=== PATIENT | male | born 1980 | race Caucasian/White ===

== ENCOUNTER 2017-02-06 13:18 | Inpatient (IN) | payer SELFPAY ==
[2017-02-06] VITALS (19 sets, daily range): BP systolic 61–117; BP diastolic 38–68; PULSE 60–89; RESP 14–18; TEMP 97.5–98.6; O2SAT 95–100
[~2017-02-06] VITALS: Ht 162.6 cm; Wt 49.0 kg
[~2017-02-06 13:18] MED LIST: CEPH-460 PO
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
[2017-02-06] MEDS ORDERED: SODIUM CHLOR 0.9% 1000 ML INJ 1,000 ML IV ONE ×2 (15:15→16:15)
--- NOTE | 2017-02-06 15:42 | RADRPT ---
EXAM DATE/TIME: 02/06/2017 15:27 [facility] COMPARISON: CHEST SINGLE AP, January 07, 2015, 2:40. INDICATIONS : Patient complains of shortness of breath and chest pain. Patient also has a fever. MEDICAL HISTORY : None. SURGICAL HISTORY : Chest tube. Tracheotomy. ENCOUNTER: Initial ACUITY: 1 day PAIN SCORE: 4/10 LOCATION: chest FINDINGS: A single view of the chest demonstrates the lungs to be symmetrically aerated without evidence of mas s, infiltrate or effusion. The cardiomediastinal contours are unremarkable. Osseous structures are intact. CONCLUSION: No acute disease. Joaquin Bangura MD on February 06, 2017 at 15:39 Board Certified Radiologist. This report was verified electronically.
[2017-02-06 15:54] LABS: AUTOMATED NEUTROPHIL # 16.5 TH/MM3 (1.8-7.7); BASOPHIL % 0.2 % (0.0-2.0); EOSINOPHIL % 0.1 % (0.0-4.0); HEMATOCRIT 30.1 % (39.0-51.0); HEMO FLAGS DIFF FINAL; LYMPH % 4.3 % (9.0-44.0); LYMPHOCYTE # 0.8 TH/MM3 (1.0-4.8); MEAN CELL VOLUME 79.7 FL (80.0-100.0); MEAN CORPUSCULAR HEMOGLOBIN 25.7 PG (27.0-34.0); MEAN CORPUSCULAR HGB CONC 32.2 % (32.0-36.0); MONO % 10.4 % (0.0-8.0); PLATELET COUNT 226 TH/MM3 (150-450); RED BLOOD COUNT 3.78 MIL/MM3 (4.50-5.90); WHITE BLOOD COUNT 19.5 TH/MM3 (4.0-11.0)
[2017-02-06] MEDS ORDERED: PIPERACIL-TAZO 4.5 GM PREMIX 100 ML IV ONE (16:00)
[2017-02-06] MEDS ORDERED: VANCOMYCIN INJ 1,000 MG in SODIUM CHLOR 0.9% 250 ML INJ 250 ML IV ONE (16:00)
[2017-02-06 16:02] LABS: APTT (PATIENT) 32.6 SEC (24.3-30.1); INTERNATIONAL NORMALIZED RATIO 1.2 RATIO; PROTHROMBIN TIME - PATIENT 13.4 SEC (9.8-11.6)
[2017-02-06] MEDS ORDERED: ASPI325T PO (16:07)
[2017-02-06] MEDS ORDERED: IBUP-1129 (16:07)
[2017-02-06 16:19] LABS: ALT (GPT) 46 U/L (12-78); ANION GAP 12 MEQ/L (5-15); AST (GOT) 90 U/L (15-37); BICARBONATE 25.5 MEQ/L (21.0-32.0); BLOOD UREA NITROGEN 67 MG/DL (7-18); CHLORIDE 94 MEQ/L (98-107); GLOMERULAR FILTRATION RATE 26 ML/MIN (>89); MAGNESIUM 2.1 MG/DL (1.5-2.5); POTASSIUM 3.3 MEQ/L (3.5-5.1); SODIUM (NA) 131 MEQ/L (136-145)
[2017-02-06 16:22] LABS: ALKALINE PHOSPHATASE 649 U/L (45-117); TOTAL BILIRUBIN ADULT 0.5 MG/DL (0.2-1.0)
[2017-02-06 16:23] LABS: CREATINE KINASE 32 U/L (39-308)
[2017-02-06 17:32] LABS: WBC, SYNOVIAL FLUID 26800 /MM3 (0-200)
[2017-02-06] MEDS ORDERED: TERBUTALINE INJ 1 MG/ML AMP SQ PRN (17:45)
[2017-02-06] MEDS ORDERED: NOREPINEPHRINE-DEXTROSE DRIP 250 ML IV SCH (17:45)
[2017-02-06] MEDS ORDERED: NOREPINEPHRINE 4 MG/4 ML AMP ONE (18:06)
[2017-02-06 18:30] LABS: BACTERIA, URINE RARE /hpf; BLOOD, URINE MOD (NEG); GLUCOSE,URINE NEG (NEG); KETONE, URINE NEG (NEG); MUCUS URINE FEW /lpf (OCC); NITRITE,URINE NEG (NEG); PH, URINE 5.5 (5.0-8.5); SQUAMOUS EPITHELIAL CELL URINE 1 /hpf (0-5); URINE COLOR YELLOW (YELLW/STRAW)
[2017-02-06 18:33] LABS: COMMENT (UR) CATH-CULTURE IND; CULTURE IF INDICATED CATH CULTURE IND
[2017-02-06] MEDS ORDERED: CHLORHEXIDINE GLUCONATE 2 % 1 PACK (2 CLOTHS) TOP PRN (19:00)
[2017-02-06] MEDS ORDERED: ONDANSETRON HCL 4 MG/2 ML VIAL IV PRN (19:00)
[2017-02-06] MEDS ORDERED: Vancomycin Consult Pharmacy 1 EA OTHER SCH (19:00)
[2017-02-06] MEDS ORDERED: RESP: ALBUTEROL 2.5 MG/IPRATROPIUM 0.5 MG NEB (PRN) INH (19:00)
[2017-02-06] MEDS ORDERED: SENNOSIDES 8.6 MG TAB PO PRN (19:00)
[2017-02-06] MEDS ORDERED: MISCELLANEOUS NURSING INFORMATION XX SCH (19:00)
[2017-02-06] MEDS ORDERED: BISACODYL 10 MG SUPP RECTAL PRN (19:00)
[2017-02-06] MEDS ORDERED: LACTULOSE SYRUP 20 GM/30 ML CUP PO PRN (19:00)
[2017-02-06] MEDS ORDERED: MAGNESIUM HYDROXIDE SUSP 30 ML CUP PO PRN (19:00)
--- NOTE | 2017-02-06 19:06 | RADRPT ---
EXAM DATE/TIME: 02/06/2017 18:36 [facility] COMPARISON: No previous studies available for comparison. INDICATIONS : Abscess. MEDICAL HISTORY : Hepatitis C. IVDA SURGICAL HISTORY : Mandible ENCOUNTER: Initial ACUITY: 1 day PAIN SCORE: 5/10 LOCATION: Paraspinal TECHNIQUE: Multiplanar multisequence MRI of the thoracic spine was performed. FINDINGS: VERTEBRA: Normal vertebral body height. Homogeneous marrow signal. ALIGNMENT: Normal. CORD: Normal position and configuration. T1-T2: Normal. T2-T3: The thecal sac has a normal diameter. No evidence of disc bulge or protrusion. T3-T4: The thecal sac has a normal diameter. No evidence of disc bulge or protrusion. T4-T5: The thecal sac has a normal diameter. No evidence of disc bulge or protrusion. T5-T6: The thecal sac has a normal diameter. No evidence of disc bulge or protrusion. T6-T7: The thecal sac has a normal diameter. No evidence of disc bulge or protrusion. T7-T8: The thecal sac has a normal diameter. No evidence of disc bulge or protrusion. T8-T9: The thecal sac has a normal diameter. No evidence of disc bulge or protrusion. T9-T10: The thecal sac has a normal diameter. No evidence of disc bulge or protrusion. T10-T11: The thecal sac has a normal diameter. No evidence of disc bulge or protrusion. T11-T12: The thecal sac has a normal diameter. No evidence of disc bulge or protrusion. T12-L1: The thecal sac has a normal diameter. No evidence of disc bulge or protrusion. CONCLUSION: Negative thoracic spine MRI without contrast. Timoteo Stapleton MD on February 06, 2017 at 19:02 Board Certified Radiologist. This report was verified electronically.
--- NOTE | 2017-02-06 19:16 | RADRPT ---
EXAM DATE/TIME: 02/06/2017 18:36 [facility] COMPARISON: No previous studies available for comparison. INDICATIONS : Abscess. MEDICAL HISTORY : Hepatitis C. IVDA SURGICAL HISTORY : Mandible ENCOUNTER: Initial ACUITY: 1 day PAIN SCORE: 4/10 LOCATION: Paraspinal TECHNIQUE: Multiplanar, multisequence MRI examination of the cervical spine was performed. FINDINGS: VERTEBRAE: Normal vertebral body height. Homogeneous marrow signal. ALIGNMENT: No evidence of subluxation. CORD: Normal configuration and signal. POST FOSSA: The cerebellar tonsils are normal in position. C2-C3: The thecal sac has a normal configuration. There is no evidence of disc herniation or spinal canal s tenosis. The neural foramina are patent bilaterally. C3-C4: The thecal sac has a normal configuration. There is no evidence of disc herniation or spinal canal s tenosis. The neural foramina are patent bilaterally. C4-C5: Tiny broad posterior disc protrusion without significant foraminal or spinal stenosis. C5-C6: Tiny, broad posterior disc protrusion without significant foraminal or spinal stenosis. C6-C7: The thecal sac has a normal configuration. There is no evidence of disc herniation or spinal canal s tenosis. The neural foramina are patent bilaterally. C7-T1: The thecal sac has a normal configuration. There is no evidence of disc herniation or spinal canal s tenosis. The neural foramina are patent bilaterally. CONCLUSION: Minimal degenerative changes. No stenosis or abscess of the cervical spine. Timoteo Stapleton MD on February 06, 2017 at 19:14 Board Certified Radiologist. This report was verified electronically.
--- NOTE | 2017-02-06 19:41 | RADRPT ---
EXAM DATE/TIME: 02/06/2017 18:36 [facility] COMPARISON: No previous studies available for comparison. INDICATIONS : Abscess. MEDICAL HISTORY : Hepatitis C. IVDA SURGICAL HISTORY : Mandible ENCOUNTER: Initial ACUITY: 1 day PAIN SCORE: 5/10 LOCATION: Paraspinal TECHNIQUE: Multiplanar multisequence MRI of the lumbar spine was performed without contrast. FINDINGS: The most caudal appearing lumbar vertebra is numbered as L5. VERTEBRAE: Homogeneous signal. Normal alignment. CONUS: Normal level and configuration. T12-L1: The thecal sac has a normal diameter. No evidence of disc bulge or protrusion. The neural foramina are patent bilaterally. L1-L2: The disc is desiccated and has mild loss of height. There is a high intensity zone anteriorly and wit h some adjacent marrow edema of the anterior, inferior corner of the L1 vertebral body, appearing george ctive. There is diffuse bulging of the disc annulus. No significant foraminal or spinal stenosis demo nstrated. L2-L3: The thecal sac has a normal diameter. No evidence of disc bulge or protrusion. The neural foramina are patent bilaterally. L3-L4: The thecal sac has a normal diameter. No evidence of disc bulge or protrusion. The neural foramina are patent bilaterally. L4-L5: The disc is slightly desiccated. Minimal loss of height. There is diffuse bulging of the disc annulus and mild bilateral facet osteoarthritis. No significant foraminal or spinal stenosis. L5-S1: Disc height and hydration are within normal limits. Mild bilateral facet osteoarthritis. No foraminal or spinal stenosis. CONCLUSION: 1. Lumbar spine degenerative changes as above, most conspicuous at L1/L2. 2. Large anterior annular fissure at the L1/L2 disc and reactive appearing marrow edema of the adjace nt anterior/inferior corner of the L1 vertebral body. 3. No abscess. No significant foraminal or spinal stenosis. No evidence of osteomyelitis. Timoteo Stapleton MD on February 06, 2017 at 19:36 Board Certified Radiologist. This report was verified electronically.
[2017-02-06] MEDS: SODIUM CHLOR 0.9% 1000 ML INJ 1,000 ML IV SCH (20:00)
[2017-02-06] MEDS: FAMOTIDINE 20 MG/2 ML VIAL IV PUSH SCH (20:01)
[2017-02-06] MEDS: DOCUSATE SODIUM 50 MG/SENNA 8.6 MG TAB PO SCH (20:01)
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
[2017-02-06] MEDS: PIPERACIL-TAZO 2.25 GM PREMIX 50 ML IV SCH (20:26)
[2017-02-06] MEDS ORDERED: LORazepam 2 MG/ML VIAL IV PUSH PRN (22:15)
[2017-02-07] VITALS (16 sets, daily range): BP systolic 88–122; BP diastolic 49–82; PULSE 69–111; RESP 16–18; TEMP 99.6–101.3; O2SAT 92–100
[2017-02-07] MEDS: SODIUM CHLOR 0.9% 1000 ML INJ 1,000 ML IV SCH ×4 (02:49→20:04)
[2017-02-07] MEDS: CHLORHEXIDINE GLUCONATE 2 % 1 PACK (2 CLOTHS) TOP SCH ×2 (03:54→20:04)
[2017-02-07 04:42] LABS: MEAN CELL VOLUME 79.7 FL (80.0-100.0); MEAN CORPUSCULAR HEMOGLOBIN 25.8 PG (27.0-34.0); MEAN CORPUSCULAR HGB CONC 32.3 % (32.0-36.0); PLATELET COUNT 174 TH/MM3 (150-450); RED BLOOD COUNT 2.89 MIL/MM3 (4.50-5.90); RED CELL DISTRIBUTION WIDTH 14.1 % (11.6-17.2); WHITE BLOOD COUNT 14.1 TH/MM3 (4.0-11.0)
[2017-02-07 04:45] LABS: HEMO FLAGS AUTO DIFF
[2017-02-07] MEDS: PIPERACIL-TAZO 2.25 GM PREMIX 50 ML IV SCH ×3 (04:49→20:05)
[2017-02-07 05:04] LABS: BICARBONATE 23.7 MEQ/L (21.0-32.0); CALCIUM-PROTEIN CORRECTED 7.9 MG/DL (8.5-10.1); MAGNESIUM 1.6 MG/DL (1.5-2.5); POTASSIUM 3.2 MEQ/L (3.5-5.1); TOTAL BILIRUBIN ADULT 0.3 MG/DL (0.2-1.0)
[2017-02-07] MEDS ORDERED: SODIUM CHLOR 0.9% 1000 ML INJ 1,000 ML IV ONE (05:45)
[2017-02-07] MEDS: POTASSIUM CHLOR 20 MEQ PREMIX 100 ML IV SCH ×2 (06:19→09:41)
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
[2017-02-07 06:46] LABS: BANDS 20 % (0-6); NEUTROPHIL # MANUAL DIFF 11.8 TH/MM3 (1.8-7.7); POLYS (SEG NEUTROPHILS) 64 % (16-70); WBC DIFF SAMPLE 100
[2017-02-07 06:47] LABS: DOHLE BODIES PRESENT (NONE SEEN); PLATELET ESTIMATE SMEAR NORMAL (NORMAL); PLATELET MORPHOLOGY NORMAL (NORMAL); SCAN/DIFF FINAL DIFF MANUAL
[2017-02-07] MEDS: DOCUSATE SODIUM 50 MG/SENNA 8.6 MG TAB PO SCH ×2 (09:00→20:05)
[2017-02-07] MEDS: FAMOTIDINE 20 MG/2 ML VIAL IV PUSH SCH ×2 (09:49→20:04)
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
--- NOTE | 2017-02-07 15:50 | EKG ---
Date Performed: 02/06/2017 Time Performed: 13:39:29 PTAGE: 36 years EKG: Sinus rhythm POSSIBLE RIGHT VENTRICULAR CONDUCTION DELAY NONSPECIFIC T-WAVE ABNORMALITY BORDERLINE ECG NO PREVIOUS TRACING DOCTOR: Vernon James Interpretating Date/Time 02/07/2017 15:48:46
--- NOTE | 2017-02-07 17:53 | RADRPT ---
EXAM DATE/TIME: 02/07/2017 17:21 [facility] COMPARISON: SHOULDER LEFT (1 VW), February 07, 2017, 5:56. INDICATIONS : Septic joint MEDICAL HISTORY : Hepatitis C. IVDA SURGICAL HISTORY : Mandible ENCOUNTER: Initial ACUITY: 1 day PAIN SCORE: 7/10 LOCATION: Left shoulder TECHNIQUE: Multiplanar, multisequence MRI examination was performed without contrast. FINDINGS: There is nondescript edema involving the left humeral head superior laterally could be due to ma rrow contusion if there is a history of trauma. The rotator cuff is grossly intact and the glenohumer al joint is grossly intact with technique. The examination is slightly limited due to motion artifact . There is also slight edema involving the distal clavicle near the AC joint with some edema in the s urrounding soft tissues and sub acromial location. CONCLUSION: Nondescript edema involving distal clavicle and proximal humerus could be due to marrow contusion, ho wever the appearance is nonspecific in regards to osteomyelitis. There is no abscess. Jaycee Bowser MD on February 07, 2017 at 17:49 Board Certified Radiologist. This report was verified electronically.
[2017-02-07] MEDS: VANCOMYCIN INJ 750 MG in SODIUM CHLOR 0.9% 250 ML INJ 250 ML IV SCH (18:00)
[2017-02-07] MEDS: ACETAMINOPHEN 325 MG TAB PO PRN (20:55)
--- NOTE | 2017-02-07 23:32 | HHI.CCPN ---
Subjective Remarks/Hospital Course 36 y/o cachectic homeless man with long-standing history of drug-seeking in [facility] presents hypotensive in 60s, largely obtunded and severely dehydrated with NNEKA. After several liters of fluid he is conversant and complains of back pain. CXR, U/A benign. Because of back pain, fever and leukocytosis he underwent MRI of back ion ED which did not show any abscess or acute injury. Prealbumin 4 and albumin 2.3, indicative of severe protein calorie malnutrition. He acknowledges chronic heroin use. 02/07: All blood cultures and left knee synovial fluid positive for MRSA in a patient with active IV drug use. NNEKA improving with aggressive hydration. Endocarditis is a primary concern - workup in progress. Severely debilitated. Objective Vital Signs Date Time Temp Pulse Resp B/P Pulse Ox O2 Delivery O2 Flow Rate FiO2 02/07/17 20:00 101.3 76 16 119/69 92 02/07/17 12:55 Room Air 02/07/17 02:40 2 Result Diagram: 02/07/1742902/[id number]/17429 Objective Remarks Gen: Ill-appearing, emaciated man. Head: Atraumatic. Neck: Supple, airway patent, old trach scar mid neck. Lungs: Clear, no wheezes or crackles. Comfortable respiratory pattern, mild tachypnea. Heart: NL S1S2, No JVD. RRR. Abdomen: Scaphoid, soft, no guarding. BS active. Extremities: Warm, well perfused. Neuro: STEFANIE. Moves 4 limbs to command. Conversant. Anxious, fidgety. A/P Assessment and Plan Assessment: 1. Severe sepsis. 1a. Bacteremia - MRSA 02/06 2. Hypotension. 3. Active heroin addiction. 4. NNEKA. 5. Hep C 6. Severe Protein Calorie Malnutrition 7. Infected left knee joint. Plan: 1. Continued hydration. 2. HIV and hepatitis panel. 3. Lactic acid a.m. 4. Broad abx coverage pending culture results. 5. Trend CBC, RFTs. 6. H2 crispin 7. Start chemical DVT PX pending decision for LP. 8. Left shoulder xray NL, MRI shoulder edema, no osteomyelitis. 9. ID consult. Overall impression: Patient arrived critically ill and largely obtunded. He was severely dehydrated and emaciated. His [employer] exam and present level of consciousness mitigate against meningitis. Source of sepsis unknown - endocarditis highly likely. I appreciate ID input. Leandro Estrada MD Feb 07, 2017 23:32
[2017-02-08] VITALS (8 sets, daily range): BP systolic 103–142; BP diastolic 51–80; PULSE 56–104; RESP 16–19; TEMP 96.6–101.1; O2SAT 92–97
[2017-02-08 03:03] LABS: AUTOMATED NEUTROPHIL # 9.6 TH/MM3 (1.8-7.7); BASOPHIL % 0.3 % (0.0-2.0); EOSINOPHIL # 0.1 TH/MM3 (0-0.4); EOSINOPHIL % 0.6 % (0.0-4.0); HEMATOCRIT 22.9 % (39.0-51.0); LYMPHOCYTE # 1.5 TH/MM3 (1.0-4.8); MEAN CELL VOLUME 79.8 FL (80.0-100.0); MEAN CORPUSCULAR HEMOGLOBIN 26.6 PG (27.0-34.0); MEAN CORPUSCULAR HGB CONC 33.3 % (32.0-36.0); NEUT % 76.1 % (16.0-70.0); PLATELET COUNT 166 TH/MM3 (150-450); RED BLOOD COUNT 2.87 MIL/MM3 (4.50-5.90); RED CELL DISTRIBUTION WIDTH 14.2 % (11.6-17.2); WHITE BLOOD COUNT 12.7 TH/MM3 (4.0-11.0)
[2017-02-08] MEDS: PIPERACIL-TAZO 2.25 GM PREMIX 50 ML IV SCH ×3 (03:15→21:18)
[2017-02-08 03:26] LABS: HEMO FLAGS AUTO DIFF
[2017-02-08 03:42] LABS: BICARBONATE 25.3 MEQ/L (21.0-32.0); POTASSIUM 3.8 MEQ/L (3.5-5.1)
[2017-02-08 04:14] LABS: SCAN/DIFF AUTO DIFF CONFIRMED
[2017-02-08] MEDS: ACETAMINOPHEN 325 MG TAB PO PRN (06:23)
[2017-02-08] MEDS: SODIUM CHLOR 0.9% 1000 ML INJ 1,000 ML IV SCH ×2 (06:24→21:28)
[2017-02-08] MEDS: THIAMINE HCL 100 MG TAB PO SCH (07:43)
[2017-02-08] MEDS: FOLIC ACID 1 MG TAB PO SCH (07:44)
[2017-02-08] MEDS: DOCUSATE SODIUM 50 MG/SENNA 8.6 MG TAB PO SCH ×3 (07:44→21:18)
[2017-02-08] MEDS: FAMOTIDINE 20 MG TAB PO SCH ×2 (07:44→21:00)
[2017-02-08] MEDS: HEPARIN SODIUM - SQ 10,000 UNITS/ML VIAL SQ SCH ×2 (07:44→21:19)
[2017-02-08] MEDS ORDERED: PROPOFOL 200 MG/20 ML AMP IV ONE (12:00)
[2017-02-08] MEDS ORDERED: ONDANSETRON HCL 4 MG/2 ML VIAL IV PUSH ONE (12:00)
[2017-02-08] MEDS ORDERED: LACTATED RINGER'S 1000 ML INJ 1,000 ML IV ONE (12:00)
[2017-02-08] MEDS ORDERED: ePHEDrine/NS 25 MG/5 ML SYR IV ONE (12:00)
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
[2017-02-08] MEDS ORDERED: fentaNYL CITRATE 250 MCG/5 ML AMP ONE (13:34)
[2017-02-08] MEDS ORDERED: GENTAMICIN SULFATE 80 MG/2 ML VIAL ONE (13:48)
[2017-02-08] MEDS ORDERED: VANCOMYCIN HCL 1000 MG VIAL ONE (14:03)
[2017-02-08] MEDS ORDERED: DO NOT ADM ANY ANTICOAGULANT DRUGS PRN (14:55)
--- NOTE | 2017-02-08 14:57 | HHI.PR ---
Subjective Remarks Pt states he has a lot of pain. Trying to move his knee from time to time but does have trouble moving his left shoulder as well. denies any CP/SOB/N/V Objective Vitals Vital Signs Date Time Temp Pulse Resp B/P (MAP) Pulse Ox O2 Delivery O2 Flow Rate FiO2 02/08/17 12:00 97.0 69 17 117/67 (84) 95 02/08/17 08:00 101.1 90 18 119/59 (79) 93 02/08/17 07:45 90 02/08/17 04:00 100.8 104 16 142/80 (100) 93 02/08/17 00:00 78 02/08/17 00:00 97.6 103 16 103/51 (68) 96 02/07/17 20:00 101.3 76 16 119/69 (86) 92 02/07/17 16:00 100.8 69 17 111/62 (78) 97 02/07/17 15:00 78 I/O 02/07/17 02/07/17 02/07/17 02/08/17 02/08/17 02/08/17 07:00 15:00 23:00 07:00 15:00 23:00 Intake Total 4400 ml 1160 ml 800 ml Output Total 1200 ml 550 ml 450 ml 350 ml Balance 3200 ml 610 ml -450 ml 450 ml Intake IV Total 4400 ml 1160 ml 800 ml Output Urine Total 1200 ml 550 ml 450 ml 350 ml Result Diagram: 02/08/17 0245 02/08/17 0245 Imaging Last Impressions Shoulder X-Ray 02/07/17 0000 Signed Impressions: Service Date/Time: Tuesday, February 07, 2017 05:56 - CONCLUSION: Unremarkable single view examination of the left shoulder. Nabil Rai MD Shoulder MRI 02/07/17 0000 Signed Impressions: Service Date/Time: Tuesday, February 07, 2017 17:21 - CONCLUSION: Nondescript edema involving distal clavicle and proximal humerus could be due to marrow contusion, however the appearance is nonspecific in regards to osteomyelitis. There is no abscess. Jaycee Bowser MD Chest X-Ray 02/06/17 1503 Signed Impressions: Service Date/Time: Monday, February 06, 2017 15:27 - CONCLUSION: No acute disease. Joaquin Bangura MD Thoracic Spine MRI 02/06/17 0000 Signed Impressions: Service Date/Time: Monday, February 06, 2017 18:36 - CONCLUSION: Negative thoracic spine MRI without contrast. Timoteo Stapleton MD Lumbar Spine MRI 02/06/17 0000 Signed Impressions: Service Date/Time: Monday, February 06, 2017 18:36 - CONCLUSION: 1. Lumbar spine degenerative changes as above, most conspicuous at L1/L2. 2. Large anterior annular fissure at the L1/L2 disc and reactive appearing marrow edema of the adjacent anterior/inferior corner of the L1 vertebral body. 3. No abscess. No significant foraminal or spinal stenosis. No evidence of osteomyelitis. Timoteo Stapleton MD Cervical Spine MRI 02/06/17 0000 Signed Impressions: Service Date/Time: Monday, February 06, 2017 18:36 - CONCLUSION: Minimal degenerative changes. No stenosis or abscess of the cervical spine. Timoteo Stapleton MD Objective Remarks Gen: emaciated man. Head: Atraumatic. Neck: airway patent Lungs: Clear, no wheezes or crackles. Heart: RRR w no murmurs Abdomen: soft, no guarding. BS active. Extremities: Warm, well perfused. Neuro: anxious. able to move the right side but limited movement on the left knee and left shoulder A/P Problem List: (1) Septic shock ICD Code: A41.9 - Sepsis, unspecified organism; R65.21 - Severe sepsis with septic shock Status: Acute (2) NNEKA (acute kidney injury) ICD Code: N17.9 - Acute kidney failure, unspecified Status: Acute (3) Encephalopathy acute ICD Code: G93.40 - Encephalopathy, unspecified Status: Acute Assessment and Plan 1. Severe sepsis. Pt continue to have temps of Tm 101.3. ID following. Tachycardia is improving. Leukocytosis down to 12.7 today. Continue IV zosyn and vanc. Blood cx growing MRSA. Concerns for endocarditis. ECHO has been ordered. no report available. lactic acid normal. source is septic knee/ ? left shoulder. ortho consult in place. MRI shoulder and thoracic/lumbar spine reviewed. 2. Hypotension. resolved. continue IVFs for now as pt is NPO. NS@100ml/hr 3. Active heroin addiction. Pt has been counseled to quit. 4. NNEKA. Cr. 1.69 on admission now down to 1.00 5. Hx of hep C. stable. 6. Severe Protein Calorie Malnutrition. will get RD consult for recommendations 7. Infected left knee joint. see above. synovial fluid culture growing MRSA Discharge Planning continue to f/u on cultures. continue IV abx. awaiting ortho consult. appreciate input from Lupis Gabriel MD Feb 08, 2017 14:57
[2017-02-08] MEDS ORDERED: ceFAZolin INJ 1,000 MG VIAL ONE (15:19)
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
[2017-02-08] MEDS ORDERED: LACTULOSE SYRUP 20 GM/30 ML CUP PO PRN (15:30)
[2017-02-08] MEDS ORDERED: SENNOSIDES 8.6 MG TAB PO PRN (15:30)
[2017-02-08] MEDS ORDERED: MAGNESIUM HYDROXIDE SUSP 30 ML CUP PO PRN (15:30)
[2017-02-08] MEDS ORDERED: BISACODYL 10 MG SUPP RECTAL PRN (15:30)
[2017-02-08] MEDS ORDERED: oxyCODONE/ACETAMINOPHEN 5 MG/325 MG TAB PO PRN (15:30)
[2017-02-08] MEDS ORDERED: MORPHINE SULFATE 8 MG/ML INJ IV PUSH PRN (15:30)
[2017-02-08] MEDS ORDERED: ZOLPIDEM TARTRATE 5 MG TAB PO PRN (15:30)
[2017-02-08] MEDS ORDERED: Post-op Orders (for Pharmacy) MISC XX ONE (15:30)
[2017-02-08] MEDS ORDERED: SODIUM CHLORIDE 0.9% FLUSH 10 ML FLUSH IV FLUSH PRN (15:30)
--- NOTE | 2017-02-08 15:33 | PD.OP ---
cc: Arcadio Monge Jr., MD Operative Report Date of Surgery: Feb 08, 2017 Preoperative Diagnosis: left knee septic arthritis Postoperative Diagnosis: same Procedure: left knee irrigation and drainage Anesthesia: Surgeon: Arcadio Monge Research Program Intern(s): staff Resident Surgeon: none Operation and Findings: The patient was placed supine on OR table. Left lower extremity was prepped and dapped in sterile manner. Arthroscopy trochar was introduced in the superior lateral portal and and arthrotomy was performed inferior medially. cultures were taken. small amount of cloudy synovial fluid was expressed. The knee joint was drained and thoroughly irrigated with copious saline. A hemovac was placed deep. The wounds were closed with 2-0 nylon. Sterile dressing applied. Patient extubated and transfered to PACU in stable condition. -No complications rAcadio Monge Jr., MD Feb 08, 2017 15:33
--- NOTE | 2017-02-08 15:44 | ECHRPT ---
Indication: ENDOCARDITIS CONCLUSIONS The left ventricular systolic function is low normal with an estimated ejection fraction in the rang e of 50- 55%. Large, mobile vegetation on the anterior leaflet of the tricuspid valve (1.53cm X 1.19 cm) Mitral, aortic, and pulmonic valves well visualized and no vegetation seen. Normal left ventricular size. Wall thickness is normal. No regional wall motion abnormalities are present. The right ventricle size is upper limits of normal. There is moderate tricuspid valve regurgitation. The estimated pulmonary arterial pressure is 50 mmHg. BP: / HR: Rhythm: Sinus MEASUREMENTS (Male / Female) Normal Values Technical Quality:Good M-MODE LV Diastolic Diameter MM 5.3 cm 4.2 - 5.9 / 3.9 - 5.3 cm IVS Diastolic Thickness MM 0.8 cm 0.6 - 1.0 / 0.6 - 0.9 cm LVPW Diastolic Thickness MM 0.9 cm 0.6 - 1.0 / 0.6 - 0.9 cm LV Relative Wall Thickness MM 0.3 0.24 - 0.42 / 0.22 - 0.42 LV Mass Index MM 122.4 g/m 49 - 115 / 43 - 95 g/m FINDINGS LEFT VENTRICLE The left ventricular systolic function is low normal with an estimated ejection fraction in the rang e of 50- 55%. Normal left ventricular size. Wall thickness is normal. No regional wall motion abnormalities are present. RIGHT VENTRICLE The right ventriclar size is upper limits of normal. LEFT ATRIUM The left atrial size is normal. RIGHT ATRIUM The right atrial size is normal. ATRIAL SEPTUM Normal atrial septal thickness without atrial level shunting by limited color doppler interrogation. AORTA The aortic root and proximal ascending aorta are normal in size on limited imaging. MITRAL VALVE Structurally normal mitral valve. No mitral valve stenosis or regurgitation. AORTIC VALVE Trileaflet aortic valve. No aortic valve stenosis or regurgitation. TRICUSPID VALVE Findings consistent with vegetation on the anterior leaflet of the tricuspid valve. There is moderate tricuspid valve regurgitation. The estimated pulmonary arterial pressure is 50 mmHg. PULMONARY VALVE Trivial pulmonary valve regurgitation. VESSELS The inferior vena cava is normal in size. PERICARDIUM No pericardial effusion. Ervin Patel MD (Electronically Signed) Final Date:08 February 2017 15:43
[2017-02-08] MEDS: KETOROLAC TROMETHAMINE 30 MG/ML (IVP) VIAL IVP SCH ×2 (17:02→21:19)
[2017-02-08] MEDS: VANCOMYCIN INJ 750 MG in SODIUM CHLOR 0.9% 250 ML INJ 250 ML IV SCH (17:03)
[2017-02-08] MEDS: ENOXAPARIN SODIUM 30 MG/0.3 ML SYRINGE SQ SCH (17:03)
[2017-02-08] MEDS: ACETAMINOPHEN/HYDROcodone 325 MG/5 MG TAB PO PRN ×2 (17:04→21:19)
[2017-02-08] MEDS: SODIUM CHLORIDE 0.9% FLUSH 10 ML FLUSH IV FLUSH SCH (21:00)
[2017-02-09] VITALS (7 sets, daily range): BP systolic 120–143; BP diastolic 61–77; PULSE 51–62; RESP 16–20; TEMP 96.1–98.7; O2SAT 95–100
[2017-02-09] MEDS: ENOXAPARIN SODIUM 30 MG/0.3 ML SYRINGE SQ SCH ×2 (03:21→14:30)
[2017-02-09] MEDS: CHLORHEXIDINE GLUCONATE 2 % 1 PACK (2 CLOTHS) TOP SCH (03:21)
[2017-02-09] MEDS: SODIUM CHLOR 0.9% 1000 ML INJ 1,000 ML IV SCH ×2 (03:22→12:51)
[2017-02-09] MEDS: KETOROLAC TROMETHAMINE 30 MG/ML (IVP) VIAL IVP SCH ×4 (03:22→22:05)
[2017-02-09] MEDS: PIPERACIL-TAZO 2.25 GM PREMIX 50 ML IV SCH ×2 (04:08→11:43)
[2017-02-09] MEDS: ACETAMINOPHEN/HYDROcodone 325 MG/5 MG TAB PO PRN ×4 (05:31→18:39)
[2017-02-09 05:46] LABS: BASOPHIL % 0.2 % (0.0-2.0); HEMO FLAGS DIFF FINAL; LYMPH % 6.5 % (9.0-44.0); MEAN CELL VOLUME 79.8 FL (80.0-100.0); MEAN CORPUSCULAR HEMOGLOBIN 26.6 PG (27.0-34.0); MEAN CORPUSCULAR HGB CONC 33.3 % (32.0-36.0); NEUT % 90.3 % (16.0-70.0); PLATELET COUNT 155 TH/MM3 (150-450); RED BLOOD COUNT 2.88 MIL/MM3 (4.50-5.90); RED CELL DISTRIBUTION WIDTH 14.6 % (11.6-17.2); WHITE BLOOD COUNT 15.5 TH/MM3 (4.0-11.0)
[2017-02-09 06:12] LABS: BICARBONATE 22.2 MEQ/L (21.0-32.0); POTASSIUM 3.9 MEQ/L (3.5-5.1)
[2017-02-09] MEDS: DOCUSATE SODIUM 50 MG/SENNA 8.6 MG TAB PO SCH ×3 (09:00→22:05)
[2017-02-09] MEDS: SODIUM CHLORIDE 0.9% FLUSH 10 ML FLUSH IV FLUSH SCH ×2 (09:00→21:00)
[2017-02-09] MEDS: FAMOTIDINE 20 MG TAB PO SCH ×2 (09:18→22:14)
[2017-02-09] MEDS: HEPARIN SODIUM - SQ 10,000 UNITS/ML VIAL SQ SCH (09:18)
[2017-02-09] MEDS: FOLIC ACID 1 MG TAB PO SCH (09:18)
[2017-02-09] MEDS: THIAMINE HCL 100 MG TAB PO SCH (09:21)
[2017-02-09] MEDS ORDERED: PERC5TAB12 PO (09:51)
--- NOTE | 2017-02-09 09:54 | PD.ORT.PN ---
Subjective Subjective Remarks No issues. Left knee pain improved. Objective Vitals Vital Signs Date Time Temp Pulse Resp B/P (MAP) Pulse Ox O2 Delivery O2 Flow Rate FiO2 02/09/17 08:00 97.4 55 20 122/77 (92) 97 02/09/17 05:54 97.8 52 16 133/63 (86) 97 02/09/17 00:00 97.6 62 16 123/72 (89) 95 02/08/17 20:02 56 02/08/17 20:00 96.6 57 16 122/77 (92) 97 02/08/17 16:00 96.8 68 19 126/78 (94) 92 02/08/17 15:31 78 18 125/68 (87) 97 Room Air 02/08/17 15:29 76 18 97 Room Air 02/08/17 15:15 66 14 123/73 (90) 97 Nasal Cannula 2 02/08/17 15:00 69 14 114/65 (81) 94 Nasal Cannula 2 02/08/17 14:53 97.6 71 14 113/60 (77) 98 Nasal Cannula 2 02/08/17 12:00 97.0 69 17 117/67 (84) 95 02/08/17 10:50 21 I/O 02/08/17 02/08/17 02/08/17 02/09/17 02/09/17 02/09/17 07:00 15:00 23:00 07:00 15:00 23:00 Intake Total 1100 ml 1582 ml 1050 ml 120 ml Output Total 450 ml 350 ml 610 ml 0 ml Balance -450 ml 750 ml 972 ml 1050 ml 120 ml Intake Oral 720 ml 120 ml IV Total 800 ml 862 ml 1050 ml Other 300 ml Output Urine Total 450 ml 350 ml 600 ml Drainage Total 10 ml 0 ml # Voids 0 # Bowel Movements 0 Result Diagram: 02/09/1730 02/09/17 0530 Objective Remarks Alert awake and oriented -3. No acute distress. Pulmonary: Normal respiratory effort. Left lower extremity: Drain in place in the knee. Dressing clean dry and intact. Neurovascularly intact, +EHL/FHL, + PT/DP pulses. Supple compartments. Negative Homans sign. LUE: nvi, improved ROM left shoulder Assessment & Plan Assessment and Plan POD #1- Left knee irrigation debridement Doing well, Antibiotics: per ID DVT prophylaxis, Lovenox Weightbearing status: wbat Dressing change: Change daily, by RN starting postop day2, DC drain POD2 Dispo: Stable and okay to discharge from orthopedic standpoint tomorrow after drain removal Arcadio Monge Jr., MD Feb 09, 2017 09:54
--- NOTE | 2017-02-09 15:20 | HHI.PR ---
Subjective Remarks Pt would like something for heart burn, pain controlled w current regimen. no CP /SOB/N/V Objective Vitals Vital Signs Date Time Temp Pulse Resp B/P (MAP) Pulse Ox O2 Delivery O2 Flow Rate FiO2 02/09/17 12:00 98.7 51 20 143/61 (88) 100 02/09/17 09:50 97 02/09/17 08:00 97.4 55 20 122/77 (92) 97 02/09/17 05:54 97.8 52 16 133/63 (86) 97 02/09/17 00:00 97.6 62 16 123/72 (89) 95 02/08/17 20:02 56 02/08/17 20:00 96.6 57 16 122/77 (92) 97 02/08/17 16:00 96.8 68 19 126/78 (94) 92 02/08/17 15:31 78 18 125/68 (87) 97 Room Air 02/08/17 15:29 76 18 97 Room Air 02/08/17 15:15 66 14 123/73 (90) 97 Nasal Cannula 2 I/O 02/08/17 02/08/17 02/08/17 02/09/17 02/09/17 02/09/17 07:00 15:00 23:00 07:00 15:00 23:00 Intake Total 1100 ml 1582 ml 1050 ml 1520 ml Output Total 450 ml 350 ml 610 ml 0 ml Balance -450 ml 750 ml 972 ml 1050 ml 1520 ml Intake Oral 720 ml 120 ml IV Total 800 ml 862 ml 1050 ml 1400 ml Other 300 ml Output Urine Total 450 ml 350 ml 600 ml Drainage Total 10 ml 0 ml # Voids 0 # Bowel Movements 0 Result Diagram: 02/09/1730 02/09/17 0530 Imaging Last Impressions Shoulder X-Ray 02/07/17 0000 Signed Impressions: Service Date/Time: Tuesday, February 07, 2017 05:56 - CONCLUSION: Unremarkable single view examination of the left shoulder. Nabil Rai MD Shoulder MRI 02/07/17 0000 Signed Impressions: Service Date/Time: Tuesday, February 07, 2017 17:21 - CONCLUSION: Nondescript edema involving distal clavicle and proximal humerus could be due to marrow contusion, however the appearance is nonspecific in regards to osteomyelitis. There is no abscess. Jaycee Bowser MD Chest X-Ray 02/06/17 1503 Signed Impressions: Service Date/Time: Monday, February 06, 2017 15:27 - CONCLUSION: No acute disease. Joaquin Bangura MD Thoracic Spine MRI 02/06/17 0000 Signed Impressions: Service Date/Time: Thursday, February 06, 2017 18:36 - CONCLUSION: Negative thoracic spine MRI without contrast. Timoteo Stapleton MD Lumbar Spine MRI 02/06/17 0000 Signed Impressions: Service Date/Time: Thursday, February 06, 2017 18:36 - CONCLUSION: 1. Lumbar spine degenerative changes as above, most conspicuous at L1/L2. 2. Large anterior annular fissure at the L1/L2 disc and reactive appearing marrow edema of the adjacent anterior/inferior corner of the L1 vertebral body. 3. No abscess. No significant foraminal or spinal stenosis. No evidence of osteomyelitis. Timoteo Stapleton MD Cervical Spine MRI 02/06/17 0000 Signed Impressions: Service Date/Time: Monday, February 06, 2017 18:36 - CONCLUSION: Minimal degenerative changes. No stenosis or abscess of the cervical spine. Timoteo Stapleton MD Objective Remarks Gen: emaciated man. Head: Atraumatic. Neck: airway patent Lungs: Clear, no wheezes or crackles. Heart: RRR w no murmurs Abdomen: soft, no guarding. BS active. Extremities: Warm, well perfused. Neuro: anxious. able to move the right side but limited movement on the left knee and left shoulder A/P Problem List: (1) Septic shock ICD Code: A41.9 - Sepsis, unspecified organism; R65.21 - Severe sepsis with septic shock Status: Acute (2) NNEKA (acute kidney injury) ICD Code: N17.9 - Acute kidney failure, unspecified Status: Acute (3) Encephalopathy acute ICD Code: G93.40 - Encephalopathy, unspecified Status: Acute Assessment and Plan 1. Severe sepsis. pt has remained afebrile. ID following. Tachycardia resolved. Leukocytosis 15.5 today. Continue IV zosyn and vanc. Blood cx growing MRSA. Echo shows vegetation in the tricuspid valve. lactic acid normal. source is septic knee/ ? left shoulder. ortho following, pt is POD 1 from Left knee irrigation debridement. WBAT MRI shoulder and thoracic/lumbar spine reviewed. 2. Hypotension. resolved. 3. Active heroin addiction. Pt has been counseled to quit. 4. NNEKA. Cr. 1.69 on admission now down to 1.06 5. Hx of hep C. stable. limit tylenol intake 6. Severe Protein Calorie Malnutrition. RD consult for recommendations 7. Infected left knee joint. see above. synovial fluid culture growing MRSA Discharge Planning continue to f/u on cultures. continue IV abx. appreciate input from consultants d/c pending further work-up and clinical improvement PT following Lupis Kuhn MD Feb 09, 2017 15:20
[2017-02-09] MEDS ORDERED: PHARMACY ORDERED LAB ONE (16:45)
[2017-02-09] MEDS: PIPERACIL-TAZO 3.375 GM PREMIX 50 ML IV SCH ×2 (17:31→23:46)
[2017-02-09] MEDS: PROMETHAZINE HCL 25 MG TAB PO PRN (18:38)
[2017-02-09] MEDS: VANCOMYCIN INJ 750 MG in SODIUM CHLOR 0.9% 250 ML INJ 250 ML IV SCH (18:39)
[2017-02-09] MEDS: ACETAMINOPHEN/HYDROcodone 325 MG/10 MG TAB PO PRN (23:47)
[2017-02-10] VITALS (12 sets, daily range): BP systolic 129–160; BP diastolic 71–93; PULSE 63–76; RESP 16–19; TEMP 96–98.3; O2SAT 94–99
[2017-02-10] MEDS: CHLORHEXIDINE GLUCONATE 2 % 1 PACK (2 CLOTHS) TOP SCH (04:00)
[2017-02-10] MEDS: ENOXAPARIN SODIUM 30 MG/0.3 ML SYRINGE SQ SCH ×2 (04:44→14:46)
[2017-02-10] MEDS: KETOROLAC TROMETHAMINE 30 MG/ML (IVP) VIAL IVP SCH ×2 (04:44→09:57)
[2017-02-10] MEDS: oxyCODONE/ACETAMINOPHEN 5 MG/325 MG TAB PO PRN (04:46)
[2017-02-10] MEDS: PROMETHAZINE HCL 25 MG TAB PO PRN (04:51)
[2017-02-10] MEDS: PIPERACIL-TAZO 3.375 GM PREMIX 50 ML IV SCH ×2 (06:26→12:34)
[2017-02-10] MEDS: ACETAMINOPHEN/HYDROcodone 325 MG/10 MG TAB PO PRN ×3 (06:26→20:33)
[2017-02-10 07:49] LABS: BICARBONATE 17.6 MEQ/L (21.0-32.0)
[2017-02-10 07:56] LABS: POTASSIUM 2.8 MEQ/L (3.5-5.1)
[2017-02-10 08:07] LABS: CALCIUM-PROTEIN CORRECTED 7.5 MG/DL (8.5-10.1)
[2017-02-10] MEDS: SODIUM CHLORIDE 0.9% FLUSH 10 ML FLUSH IV FLUSH SCH ×2 (09:00→20:28)
[2017-02-10] MEDS: DOCUSATE SODIUM 50 MG/SENNA 8.6 MG TAB PO SCH ×2 (09:00→20:28)
[2017-02-10] MEDS: FOLIC ACID 1 MG TAB PO SCH (09:57)
[2017-02-10] MEDS: FAMOTIDINE 20 MG TAB PO SCH ×2 (09:58→20:28)
[2017-02-10] MEDS: POTASSIUM CHLOR 20 MEQ PREMIX 100 ML IV SCH ×2 (09:58→11:37)
[2017-02-10] MEDS: THIAMINE HCL 100 MG TAB PO SCH (09:58)
[2017-02-10] MEDS ORDERED: POTASSIUM CHLORIDE 20 MEQ CONTROLLED RELEASE TAB PO ONE (10:00)
[2017-02-10 10:34] LABS: AUTOMATED NEUTROPHIL # 11.8 TH/MM3 (1.8-7.7); BASOPHIL % 0.1 % (0.0-2.0); EOSINOPHIL # 0.2 TH/MM3 (0-0.4); EOSINOPHIL % 1.4 % (0.0-4.0); LYMPH % 13.1 % (9.0-44.0); MEAN CELL VOLUME 80.4 FL (80.0-100.0); MEAN CORPUSCULAR HEMOGLOBIN 25.7 PG (27.0-34.0); MONO % 6.8 % (0.0-8.0); NEUT % 78.6 % (16.0-70.0); PLATELET COUNT 189 TH/MM3 (150-450); RED BLOOD COUNT 2.46 MIL/MM3 (4.50-5.90); RED CELL DISTRIBUTION WIDTH 14.8 % (11.6-17.2)
[2017-02-10 10:37] LABS: HEMO FLAGS AUTO DIFF
[2017-02-10 10:39] LABS: HEMATOCRIT 19.7 % (39.0-51.0)
[2017-02-10] MEDS ORDERED: CALCIUM GLUCONATE 500 MG TAB PO SCH (11:00)
[2017-02-10 11:14] LABS: BANDS 4 % (0-6); METAMYELOCYTES 1 % (0-1); MYELOCYTES 1 % (0-0); NEUTROPHIL # MANUAL DIFF 12.6 TH/MM3 (1.8-7.7); OVALOCYTES 1+ (NORMAL); PLATELET ESTIMATE SMEAR NORMAL (NORMAL); PLATELET MORPHOLOGY NORMAL (NORMAL); POLYS (SEG NEUTROPHILS) 78 % (16-70); WBC DIFF SAMPLE 100
[2017-02-10 11:15] LABS: SCAN/DIFF FINAL DIFF MANUAL
[2017-02-10] MEDS ORDERED: SODIUM CHLOR 0.9% 250 ML INJ 250 ML IV ONE (11:15)
[2017-02-10] MEDS ORDERED: CALCIUM CARBONATE 500 MG CHEWABLE TAB CHEW PRN (11:15)
[2017-02-10] MEDS ORDERED: ACETAMINOPHEN 325 MG TAB PO PRN (11:15)
[2017-02-10] MEDS ORDERED: diphenhydrAMINE HCL 25 MG CAP PO PRN (11:15)
[2017-02-10] MEDS ORDERED: VANCOMYCIN INJ 700 MG in SODIUM CHLOR 0.9% 250 ML INJ 250 ML IV SCH (12:00)
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
--- NOTE | 2017-02-10 15:50 | HHI.PR ---
Subjective Remarks feels tired and wants to sleep. pain controlled. no nausea or vomiting. no cp or sob Objective Vitals Vital Signs Date Time Temp Pulse Resp B/P (MAP) Pulse Ox O2 Delivery O2 Flow Rate FiO2 02/10/17 12:00 96.5 66 16 141/84 (103) 96 02/10/17 08:00 96.2 68 16 129/81 (97) 98 02/10/17 04:00 97.6 70 19 134/78 (96) 94 02/10/17 00:47 18 02/10/17 00:00 96.2 64 19 135/71 (92) 94 02/09/17 23:34 18 02/09/17 22:06 18 02/09/17 20:06 21 02/09/17 20:00 96.1 60 20 120/69 (86) 96 02/09/17 16:00 96.9 57 19 138/67 (90) 98 I/O 02/09/17 02/09/17 02/09/17 02/10/17 02/10/17 02/10/17 07:00 15:00 23:00 07:00 15:00 23:00 Intake Total 1050 ml 1520 ml 2240 ml 1507 ml Output Total 0 ml 1000 ml 900 ml Balance 1050 ml 1520 ml 1240 ml 607 ml Intake Oral 120 ml 1240 ml 240 ml IV Total 1050 ml 1400 ml 1000 ml 1267 ml Output Urine Total 1000 ml 900 ml Drainage Total 0 ml 0 ml # Voids 0 # Bowel Movements 0 0 Result Diagram: 02/10/17 1000 02/10/17 0648 Imaging Last Impressions Shoulder X-Ray 02/07/17 0000 Signed Impressions: Service Date/Time: Tuesday, February 07, 2017 05:56 - CONCLUSION: Unremarkable single view examination of the left shoulder. Nabil Rai MD Shoulder MRI 02/07/17 0000 Signed Impressions: Service Date/Time: Tuesday, February 07, 2017 17:21 - CONCLUSION: Nondescript edema involving distal clavicle and proximal humerus could be due to marrow contusion, however the appearance is nonspecific in regards to osteomyelitis. There is no abscess. Jaycee Bowser MD Chest X-Ray 02/06/17 1503 Signed Impressions: Service Date/Time: Monday, February 06, 2017 15:27 - CONCLUSION: No acute disease. Joaquin Bangura MD Thoracic Spine MRI 02/06/17 0000 Signed Impressions: Service Date/Time: Monday, February 06, 2017 18:36 - CONCLUSION: Negative thoracic spine MRI without contrast. Timoteo Stapleton MD Lumbar Spine MRI 02/06/17 0000 Signed Impressions: Service Date/Time: Monday, February 06, 2017 18:36 - CONCLUSION: 1. Lumbar spine degenerative changes as above, most conspicuous at L1/L2. 2. Large anterior annular fissure at the L1/L2 disc and reactive appearing marrow edema of the adjacent anterior/inferior corner of the L1 vertebral body. 3. No abscess. No significant foraminal or spinal stenosis. No evidence of osteomyelitis. Timoteo Stapleton MD Cervical Spine MRI 02/06/17 0000 Signed Impressions: Service Date/Time: Monday, February 06, 2017 18:36 - CONCLUSION: Minimal degenerative changes. No stenosis or abscess of the cervical spine. Timoteo Stapleton MD Objective Remarks Gen: emaciated man. Head: Atraumatic. Neck: airway patent Lungs: Clear, no wheezes or crackles. Heart: RRR w no murmurs Abdomen: soft, no guarding. BS active. Extremities: Warm, well perfused. Neuro: anxious but calm. answers questions but states he would like to sleep A/P Problem List: (1) Septic shock ICD Code: A41.9 - Sepsis, unspecified organism; R65.21 - Severe sepsis with septic shock Status: Acute (2) NNEKA (acute kidney injury) ICD Code: N17.9 - Acute kidney failure, unspecified Status: Acute (3) Encephalopathy acute ICD Code: G93.40 - Encephalopathy, unspecified Status: Acute Assessment and Plan 1. Severe sepsis. pt has remained afebrile. ID following. Tachycardia resolved. Leukocytosis 15.0 today. On IV zosyn and vanc but per ID d/c zosyn, will continue w Vanc IV. Monitor Cr levels. Blood cx and wound cx growing MRSA. Echo shows vegetation in the tricuspid valve. lactic acid normal. source is septic knee/ ? left shoulder. ortho following, pt is POD 2 from Left knee irrigation debridement. WBAT MRI shoulder and thoracic/lumbar spine reviewed. 2. Hypotension. resolved 3. severe anemia: most likely post op. Hb dropped to 6.3. Will transfuse 2 units PRBC. Monitor H&H closely. Transfuse if <7 4. severe hypokalemia: K 2.8. replaced w 40mEq KCL po x 1 and 40mEq IV x1. monitor 5. hypocalcemia: replacing w calcium carbonate. monitor 6. hypomagnesemia: Mg 0.9, will replace w 2g IV MagSulfate. monitor. 7. Active heroin addiction. Pt has been counseled to quit. 8. NNEKA. Cr. 1.69 on admission now down to 0.71 9. Hx of hep C. stable. limit tylenol intake 10. Severe Protein Calorie Malnutrition. RD consult for recommendations 11. Infected left knee joint. see above. synovial fluid culture growing MRSA Discharge Planning continue to f/u on cultures. continue IV abx. appreciate input from consultants d/c pending further work-up and clinical improvement PT following Lupis Kuhn MD Feb 10, 2017 15:50
[2017-02-10] MEDS: MAGNESIUM SULFATE 1 GM PREMIX 100 ML IV SCH ×2 (16:03→17:00)
--- NOTE | 2017-02-10 17:33 | PD.ORT.PN ---
Subjective Subjective Remarks No issues. Left knee and shoulder pain improved. Objective Vitals Vital Signs Date Time Temp Pulse Resp B/P (MAP) Pulse Ox O2 Delivery O2 Flow Rate FiO2 02/10/17 16:33 98.3 73 17 150/90 98 02/10/17 16:14 96.9 74 17 145/93 99 02/10/17 16:00 96.9 74 17 145/93 (110) 99 02/10/17 12:00 96.5 66 16 141/84 (103) 96 02/10/17 08:00 96.2 68 16 129/81 (97) 98 02/10/17 04:00 97.6 70 19 134/78 (96) 94 02/10/17 00:47 18 02/10/17 00:00 96.2 64 19 135/71 (92) 94 02/09/17 23:34 18 02/09/17 22:06 18 02/09/17 20:06 21 02/09/17 20:00 96.1 60 20 120/69 (86) 96 I/O 02/09/17 02/09/17 02/09/17 02/10/17 02/10/17 02/10/17 06:59 14:59 22:59 06:59 14:59 22:59 Intake Total 1050 ml 1520 ml 2240 ml 1507 ml Output Total 0 ml 1000 ml 900 ml Balance 1050 ml 1520 ml 1240 ml 607 ml Intake Oral 120 ml 1240 ml 240 ml IV Total 1050 ml 1400 ml 1000 ml 1267 ml Output Urine Total 1000 ml 900 ml Drainage Total 0 ml 0 ml # Voids 0 # Bowel Movements 0 0 Result Diagram: 02/10/17 1000 02/10/17 0648 Objective Remarks Alert awake and oriented -3. No acute distress. Pulmonary: Normal respiratory effort. Left lower extremity: improved ROM. Dressing clean dry and intact. Neurovascularly intact, +EHL/FHL, + PT/DP pulses. Supple compartments. Negative Homans sign. LUE: nvi, improved ROM left shoulder Assessment & Plan Assessment and Plan POD #2- Left knee irrigation debridement Doing well, Antibiotics: per ID DVT prophylaxis, Lovenox Weightbearing status: wbat Dressing change: Change daily, by RN Dispo: Stable and okay to discharge from orthopedic standpoint SIGN OFF Arcadio Monge Jr., MD Feb 10, 2017 17:32
[2017-02-10] MEDS: CALCIUM CARBONATE 500 MG CHEWABLE TAB CHEW SCH (20:29)
[2017-02-10 22:38] LABS: HEMATOCRIT 30.8 % (39.0-51.0); REVIEW FLAG FINAL
[2017-02-10] MEDS: VANCOMYCIN INJ 750 MG in SODIUM CHLOR 0.9% 250 ML INJ 250 ML IV SCH (23:34)
[2017-02-11] VITALS (10 sets, daily range): BP systolic 130–165; BP diastolic 67–93; PULSE 54–97; RESP 17–19; TEMP 97.4–101.9; O2SAT 92–98
[2017-02-11] MEDS: ACETAMINOPHEN/HYDROcodone 325 MG/10 MG TAB PO PRN ×4 (02:43→22:05)
[2017-02-11] MEDS: ENOXAPARIN SODIUM 30 MG/0.3 ML SYRINGE SQ SCH ×2 (03:47→14:55)
[2017-02-11] MEDS: CHLORHEXIDINE GLUCONATE 2 % 1 PACK (2 CLOTHS) TOP SCH (04:00)
[2017-02-11 05:51] LABS: BASOPHIL # 0.1 TH/MM3 (0-0.2); BASOPHIL % 0.3 % (0.0-2.0); EOSINOPHIL # 0.3 TH/MM3 (0-0.4); EOSINOPHIL % 1.6 % (0.0-4.0); HEMATOCRIT 28.9 % (39.0-51.0); LYMPHOCYTE # 2.3 TH/MM3 (1.0-4.8); MEAN CELL VOLUME 81.3 FL (80.0-100.0); MEAN CORPUSCULAR HEMOGLOBIN 26.9 PG (27.0-34.0); MEAN CORPUSCULAR HGB CONC 33.1 % (32.0-36.0); NEUT % 78.1 % (16.0-70.0); PLATELET COUNT 263 TH/MM3 (150-450); RED BLOOD COUNT 3.56 MIL/MM3 (4.50-5.90); RED CELL DISTRIBUTION WIDTH 15.4 % (11.6-17.2); WHITE BLOOD COUNT 19.2 TH/MM3 (4.0-11.0)
[2017-02-11 05:52] LABS: HEMO FLAGS AUTO DIFF
[2017-02-11 06:20] LABS: BICARBONATE 23.5 MEQ/L (21.0-32.0); MAGNESIUM 1.6 MG/DL (1.5-2.5); POTASSIUM 4.3 MEQ/L (3.5-5.1)
[2017-02-11 08:16] LABS: BANDS 3 % (0-6); METAMYELOCYTES 1 % (0-1); NEUTROPHIL # MANUAL DIFF 16.7 TH/MM3 (1.8-7.7); POLYS (SEG NEUTROPHILS) 83 % (16-70); WBC DIFF SAMPLE 100
[2017-02-11 08:17] LABS: PLATELET ESTIMATE SMEAR NORMAL (NORMAL); PLATELET MORPHOLOGY NORMAL (NORMAL); SCAN/DIFF FINAL DIFF MANUAL
[2017-02-11] MEDS: THIAMINE HCL 100 MG TAB PO SCH (08:45)
[2017-02-11] MEDS: FAMOTIDINE 20 MG TAB PO SCH ×2 (08:45→22:05)
[2017-02-11] MEDS: DOCUSATE SODIUM 50 MG/SENNA 8.6 MG TAB PO SCH ×2 (08:45→21:00)
[2017-02-11] MEDS: FOLIC ACID 1 MG TAB PO SCH (08:45)
[2017-02-11] MEDS: CALCIUM CARBONATE 500 MG CHEWABLE TAB CHEW SCH ×2 (08:45→22:05)
[2017-02-11] MEDS: SODIUM CHLORIDE 0.9% FLUSH 10 ML FLUSH IV FLUSH SCH ×2 (08:47→21:00)
[2017-02-11] MEDS: VANCOMYCIN INJ 750 MG in SODIUM CHLOR 0.9% 250 ML INJ 250 ML IV SCH (12:14)
[2017-02-11] MEDS ORDERED: MAGNESIUM SULFATE 1 GM PREMIX 100 ML IV ONE (12:45)
--- NOTE | 2017-02-11 12:47 | HHI.PR ---
Subjective Remarks Follow-up for bacteremia Blood culture still positive, leukocytosis increasing, MAXIMUM TEMPERATURE 100.3. No shortness of breath, no chest pain. Complaining of pain left knee. Objective Vitals Vital Signs Date Time Temp Pulse Resp B/P (MAP) Pulse Ox O2 Delivery O2 Flow Rate FiO2 02/11/17 12:00 98.9 97 18 136/78 (97) 92 02/11/17 09:46 16 02/11/17 08:00 98.9 64 18 138/79 (98) 96 02/11/17 04:00 100.3 80 17 132/67 (88) 96 02/11/17 02:00 97.4 69 18 159/86 (110) 98 02/11/17 00:00 97.4 69 18 157/86 (109) 98 02/10/17 22:00 74 02/10/17 20:25 76 18 146/79 96 02/10/17 20:00 97.8 71 18 160/93 (115) 99 02/10/17 18:55 96.0 71 17 160/93 99 02/10/17 18:37 97.9 63 16 155/87 98 02/10/17 16:33 98.3 73 17 150/90 98 02/10/17 16:14 96.9 74 17 145/93 99 02/10/17 16:00 96.9 74 17 145/93 (110) 99 I/O 02/10/17 02/10/17 02/10/17 02/11/17 02/11/17 02/11/17 07:00 15:00 23:00 07:00 15:00 23:00 Intake Total 1507 ml 50 ml 3340 ml Output Total 900 ml 525 ml Balance 607 ml 50 ml 2815 ml Intake Oral 240 ml 2030 ml IV Total 1267 ml 50 ml 700 ml Packed Cells 500 ml Blood Product IV Normal Saline Flush 110 ml Output Urine Total 900 ml 525 ml # Bowel Movements 0 1 Result Diagram: 02/11/1737 02/11/17536 Objective Remarks Gen: emaciated man. Head: Atraumatic. Neck: airway patent Lungs: Clear breath sounds Heart: RRR w no murmurs Abdomen: soft, no guarding. BS active. Extremities: Warm, well perfused. Left knee David dressings in place Alert, awake, oriented 3, no focal deficits. A/P Problem List: (1) Septic shock ICD Code: A41.9 - Sepsis, unspecified organism; R65.21 - Severe sepsis with septic shock Status: Acute (2) NNEKA (acute kidney injury) ICD Code: N17.9 - Acute kidney failure, unspecified Status: Acute (3) Encephalopathy acute ICD Code: G93.40 - Encephalopathy, unspecified Status: Acute Assessment and Plan This is a 36-year-old male admitted for sepsis Severe sepsis secondary to endocarditis versus septic arthritis-MAXIMUM TEMPERATURE 100.3, leukocytosis worsening, on vancomycin. Blood culture from 2 days ago still positive. Previous blood culture and wound culture grew MRSA. Echo shows vegetation in the tricuspid valve. lactic acid normal. source is septic knee/ ? left shoulder. Orthopedics following, status post Left knee irrigation debridement. WBAT, continue pain control severe anemia: Currently stable, status post transfusion 2 units packed red blood cells, recheck CBC tomorrow Hypokalemia-replaced, resolved. Hypomagnesemia-will give another gram of magnesium sulfate today. Active urine addiction-counseled Acute renal failure-resolved History of hepatitis C-limit Tylenol Severe protein calorie malnutrition-continue recommendations per dietary Lovenox for DVT prophylaxis Discharge Planning Not medically ready Carrie Hazel MD Feb 11, 2017 12:47
[2017-02-12] VITALS (8 sets, daily range): BP systolic 119–168; BP diastolic 60–104; PULSE 66–93; RESP 16–18; TEMP 98.1–101.5; O2SAT 94–98
[2017-02-12] MEDS: VANCOMYCIN INJ 750 MG in SODIUM CHLOR 0.9% 250 ML INJ 250 ML IV SCH (00:45)
[2017-02-12] MEDS: CHLORHEXIDINE GLUCONATE 2 % 1 PACK (2 CLOTHS) TOP SCH (04:00)
[2017-02-12] MEDS: ACETAMINOPHEN/HYDROcodone 325 MG/10 MG TAB PO PRN ×3 (04:01→17:25)
[2017-02-12] MEDS: ENOXAPARIN SODIUM 30 MG/0.3 ML SYRINGE SQ SCH ×2 (04:02→16:02)
[2017-02-12 07:37] LABS: AUTOMATED NEUTROPHIL # 24.9 TH/MM3 (1.8-7.7); BASOPHIL % 0.2 % (0.0-2.0); EOSINOPHIL # 0.2 TH/MM3 (0-0.4); EOSINOPHIL % 0.6 % (0.0-4.0); HEMATOCRIT 29.8 % (39.0-51.0); HEMO FLAGS DIFF FINAL; LYMPH % 7.5 % (9.0-44.0); LYMPHOCYTE # 2.1 TH/MM3 (1.0-4.8); MEAN CELL VOLUME 81.3 FL (80.0-100.0); MEAN CORPUSCULAR HEMOGLOBIN 27.2 PG (27.0-34.0); MEAN CORPUSCULAR HGB CONC 33.4 % (32.0-36.0); MONO % 4.1 % (0.0-8.0); NEUT % 87.6 % (16.0-70.0); PLATELET COUNT 269 TH/MM3 (150-450); RED BLOOD COUNT 3.66 MIL/MM3 (4.50-5.90); RED CELL DISTRIBUTION WIDTH 15.4 % (11.6-17.2); WHITE BLOOD COUNT 28.5 TH/MM3 (4.0-11.0)
[2017-02-12 08:02] LABS: BICARBONATE 26.2 MEQ/L (21.0-32.0); POTASSIUM 4.1 MEQ/L (3.5-5.1)
[2017-02-12] MEDS: SODIUM CHLORIDE 0.9% FLUSH 10 ML FLUSH IV FLUSH SCH ×2 (09:00→20:56)
[2017-02-12] MEDS: FAMOTIDINE 20 MG TAB PO SCH ×2 (10:19→20:56)
[2017-02-12] MEDS: DOCUSATE SODIUM 50 MG/SENNA 8.6 MG TAB PO SCH ×2 (10:19→20:55)
[2017-02-12] MEDS: CALCIUM CARBONATE 500 MG CHEWABLE TAB CHEW SCH ×2 (10:19→20:56)
[2017-02-12] MEDS: FOLIC ACID 1 MG TAB PO SCH (10:19)
[2017-02-12] MEDS: THIAMINE HCL 100 MG TAB PO SCH (10:19)
--- NOTE | 2017-02-12 11:09 | HHI.PR ---
Subjective Remarks Follow up bacteremia. Blood culture pending. Increased WBC this AM. Patient states he just wants to go home. Denies any chest pain, sob, fever or chills. Patient with low grade temp 100 on 02/12 at midnight. Objective Vitals Vital Signs Date Time Temp Pulse Resp B/P (MAP) Pulse Ox O2 Delivery O2 Flow Rate FiO2 02/12/17 08:00 98.1 66 16 139/80 (99) 97 02/12/17 04:00 99.3 69 18 157/90 (112) 98 02/12/17 00:00 100.0 85 18 119/60 (79) 95 02/11/17 22:00 86 02/11/17 20:00 100.4 89 17 130/92 (105) 97 02/11/17 16:47 72 02/11/17 16:18 16 02/11/17 16:00 100.9 84 19 165/93 (117) 93 02/11/17 15:30 101.9 02/11/17 12:00 98.9 97 18 136/78 (97) 92 I/O 02/11/17 02/11/17 02/11/17 02/12/17 02/12/17 02/12/17 07:00 15:00 23:00 07:00 15:00 23:00 Intake Total 257.5 ml 1540 ml 408 ml Output Total 2450 ml Balance 257.5 ml -910 ml 408 ml Intake Oral 1440 ml IV Total 257.5 ml 100 ml 408 ml Output Urine Total 2450 ml # Bowel Movements 0 Result Diagram: 02/12/17 0556 02/12/17 0526 Imaging Last Impressions Shoulder X-Ray 02/07/17 0000 Signed Impressions: Service Date/Time: Tuesday, February 07, 2017 05:56 - CONCLUSION: Unremarkable single view examination of the left shoulder. Nabil Rai MD Shoulder MRI 02/07/17 0000 Signed Impressions: Service Date/Time: Tuesday, February 07, 2017 17:21 - CONCLUSION: Nondescript edema involving distal clavicle and proximal humerus could be due to marrow contusion, however the appearance is nonspecific in regards to osteomyelitis. There is no abscess. Jaycee Bowser MD Chest X-Ray 02/06/17 1503 Signed Impressions: Service Date/Time: Monday, February 06, 2017 15:27 - CONCLUSION: No acute disease. Joaquin Bangura MD Thoracic Spine MRI 02/06/17 0000 Signed Impressions: Service Date/Time: Monday, February 06, 2017 18:36 - CONCLUSION: Negative thoracic spine MRI without contrast. Timoteo Stapleton MD Lumbar Spine MRI 02/06/17 0000 Signed Impressions: Service Date/Time: Monday, February 06, 2017 18:36 - CONCLUSION: 1. Lumbar spine degenerative changes as above, most conspicuous at L1/L2. 2. Large anterior annular fissure at the L1/L2 disc and reactive appearing marrow edema of the adjacent anterior/inferior corner of the L1 vertebral body. 3. No abscess. No significant foraminal or spinal stenosis. No evidence of osteomyelitis. Timoteo Stapleton MD Cervical Spine MRI 02/06/17 0000 Signed Impressions: Service Date/Time: Monday, February 06, 2017 18:36 - CONCLUSION: Minimal degenerative changes. No stenosis or abscess of the cervical spine. Timoteo Stapleton MD Objective Remarks GENERAL: Very thin patient, laying in bed in nad SKIN: Warm and dry. ENT: No nasal bleeding or discharge. Mucous membranes pink and moist. NECK: Trachea midline. No JVD. CARDIOVASCULAR: Regular rate and rhythm. Central line to right groin. RESPIRATORY: No accessory muscle use. Clear to auscultation. Breath sounds equal bilaterally. GASTROINTESTINAL: Abdomen soft, non-tender, nondistended. MUSCULOSKELETAL: Extremities without clubbing, cyanosis, or edema. No obvious deformities. NEUROLOGICAL: Awake and alert. Motor grossly within normal limits. Normal speech. PSYCHIATRIC: Appropriate mood and affect; insight and judgment normal. Procedures Left knee irrigation debridement by Dr. Monge on 02/08/2017 Medications and IVs Current Medications Medications (Trade) Dose Ordered Sig/Jaime Route Start Time Stop Time Status Last Admin (Tylenol) 650 mg Q6H PRN PO 02/06/17 19:00 02/08/17 06:23 (Zofran Inj) 4 mg Q6H PRN IV 02/06/17 19:00 02/07/17 04:50 (Duoneb Neb) 1 ampule Q4HR NEB PRN INH 02/06/17 19:00 Miscellaneous Information 1 Q361D XX 02/06/17 19:00 (Chlorhexidine 2% Cloth) Taper DAILY@04 TOP 02/07/17 04:00 02/03/18 03:59 (Chlorhexidine 2% Cloth) 3 pack UNSCH PRN TOP 02/06/17 19:00 Pharmacy Profile Note 0 ml @ 0 mls/hr UNSCH OTHER 02/06/17 19:00 (Ativan Inj) 1 mg Q15M PRN IV PUSH 02/06/17 22:15 (Vitamin B1) 100 mg DAILY PO 02/08/17 09:00 02/12/17 10:19 (Folate) 1 mg DAILY PO 02/08/17 09:00 02/12/17 10:19 (Pepcid) 10 mg BID PO 02/08/17 09:00 02/12/17 10:19 ([place] 10-325 Mg) 1 tab Q6H PRN PO 02/08/17 15:00 02/12/17 10:19 ([place] 5-325 Mg) 1 tab Q4H PRN PO 02/08/17 15:00 02/09/17 18:39 (NS Flush) 2 ml UNSCH PRN IV FLUSH 02/08/17 15:30 (NS Flush) 2 ml BID IV FLUSH 02/08/17 21:00 02/11/17 08:47 (Lovenox Inj) 30 mg Q12H SQ 02/08/17 16:00 02/12/17 04:02 (Morphine Inj) 5 mg Q3H PRN IV PUSH 02/08/17 15:30 (Percocet 5-325 Mg) 1 tab Q4H PRN PO 02/08/17 15:30 (Percocet 5-325 Mg) 2 tab Q4H PRN PO 02/08/17 15:30 02/10/17 04:46 (Phenergan) 25 mg Q4H PRN PO 02/08/17 15:30 02/10/17 04:51 (Keyla-Colace) 1 tab BID PO 02/08/17 21:00 02/12/17 10:19 (Milk Of Magnesia Liq) 30 ml Q12H PRN PO 02/08/17 15:30 (Senokot) 17.2 mg Q12H PRN PO 02/08/17 15:30 (Dulcolax Supp) 10 mg DAILY PRN RECTAL 02/08/17 15:30 (Lactulose Liq) 30 ml DAILY PRN PO 02/08/17 15:30 Miscellaneous Information SPECIFIC LAB TO BE DRAWN:VANCO TROUGH DATE TO BE DRJaylan. ONCE ONCE .XX 02/12/17 11:45 02/12/17 11:46 (Tylenol) 650 mg Q4H PRN PO 02/10/17 11:15 (Benadryl) 25 mg Q4H PRN PO 02/10/17 11:15 02/10/17 16:03 Vancomycin HCl 750 mg/Sodium Chloride 257.5 ml @ 250 mls/hr Q12H IV 02/11/17 00:00 02/12/17 00:45 (Tums Chew) 500 mg Q12HR CHEW 02/10/17 21:00 02/12/17 10:19 (Ambien) 5 mg HS PRN PO 02/10/17 15:45 Vascular Central Line Catheter: Yes Assessment to: Continue Line: Central Venous Catheter Side: Right Location: Femoral A/P Problem List: (1) Septic shock ICD Code: A41.9 - Sepsis, unspecified organism; R65.21 - Severe sepsis with septic shock Status: Acute (2) NNEKA (acute kidney injury) ICD Code: N17.9 - Acute kidney failure, unspecified Status: Acute (3) Encephalopathy acute ICD Code: G93.40 - Encephalopathy, unspecified Status: Acute Assessment and Plan This is a 36-year-old male admitted for sepsis Severe sepsis secondary to endocarditis versus septic arthritis source is septic knee or shoulder, lactic acid normal. -leukocytosis worsening, on vancomycin. WBC today 28.5. -Blood culture from 2 days ago still positive, New ones pending. Previous blood culture and wound culture grew MRSA. Echo shows vegetation in the tricuspid valve. -Orthopedics following, status post Left knee irrigation debridement. WBAT, Cleared from ortho standpoint for D/C -Pain management with PO [place] and Morphine IV -ID following, Cont vanco for now, will await further recommendations Severe anemia: Currently stable, HGB 10.0. Continue to trend Hypokalemia-replaced, resolved. Hypomagnesemia-replaced, resolved Active urine addiction, IV Heroin -counseled, encouraged to quit Acute renal failure-resolved History of hepatitis C, chronic -limit Tylenol Severe protein calorie malnutrition-continue recommendations per dietary Lovenox for DVT prophylaxis Discharge Planning Pending infectious disease Marry Duncan Feb 12, 2017 11:08
[2017-02-12] MEDS ORDERED: PHARMACY ORDERED LAB ONE (11:45)
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
[2017-02-12] MEDS ORDERED: DIATRIZOATE MEGLUM/DIATRIZOATE SOD 9 ML CUP PO ONE (13:51)
[2017-02-12] MEDS: VANCOMYCIN 1,000 MG/NS 250 ML IV SCH ×2 (15:55)
[2017-02-12] MEDS: RIFAMPIN 150 MG CAP PO SCH ×2 (17:25→20:55)
[2017-02-12] MEDS ORDERED: IOHEXOL 350 MG/ML 10 ML VIAL (for RAD DIAG) IVCONTRAST ONE (21:22)
--- NOTE | 2017-02-12 21:36 | RADRPT ---
EXAM DATE/TIME: 02/12/2017 21:09 [facility] COMPARISON: CHEST SINGLE AP, February 06, 2017, 15:27. CT ABDOMEN & PELVIS W/O CONTRAST, March 18, 2009, 17:07 . INDICATIONS : Abdominal pain. Patient has endocarditis, MRSA and elevated white blood cell count.. Evaluate abdomen for abscess. IV CONTRAST: 100 cc Omnipaque 350 (iohexol) IV ORAL CONTRAST: Prescribed oral contrast ingested. RADIATION DOSE: 7.25 CTDIvol (mGy) MEDICAL HISTORY : Renal calculi. Hepatitis C. MRSA. Endocarditis. IV Drug use. SURGICAL HISTORY : None. ENCOUNTER: Subsequent ACUITY: 4 - 6 days PAIN SCALE: 2/10 LOCATION: All quadrants. TECHNIQUE: Volumetric scanning of the abdomen and pelvis was performed. Using automated exposure control and ad justment of the mA and/or kV according to patient size, radiation dose was kept as low as reasonably achievable to obtain optimal diagnostic quality images. DICOM format image data is available electro nically for review and comparison. FINDINGS: LOWER LUNGS: There are small bilateral pleural effusions with associated compressive atelectasis. 2 nodular foci o f opacity are present in the left upper lobe measuring 12 mm and in the right lower lobe measuring 10 mm. LIVER: Homogeneous density without lesion. There is no dilation of the biliary tree. No calcified gallston es. There is likely gallbladder wall edema. SPLEEN: Normal size without lesion. PANCREAS: Within normal limits. KIDNEYS: Normal in size and shape. There is no mass, stone or hydronephrosis. ADRENAL GLANDS: Within normal limits. VASCULAR: There is no aortic aneurysm. There is a right femoral venous line present with distal tip in the righ t common iliac artery. BOWEL/MESENTERY: The stomach, small bowel, and colon demonstrate no acute abnormality. There is no free intraperitone al air. There is trace free fluid in the pelvis. Large amount of stool is present throughout the colo n. ABDOMINAL WALL: There is anasarca. Minimal subcutaneous air is present on the right anterior abdominal wall. RETROPERITONEUM: There is no lymphadenopathy. BLADDER: No wall thickening or mass. REPRODUCTIVE: Within normal limits. INGUINAL: There is no lymphadenopathy or hernia. MUSCULOSKELETAL: No acute abnormality. CONCLUSION: 1. No acute finding is identified to explain the abdominal pain. No abscess is present. There is trac e simple appearing free fluid in the pelvis. 2. Anasarca. There is minimal subcutaneous air on the right anterior abdominal wall. This may be rela saman to a recent subcutaneous injection. 3. Small bilateral pleural effusions with associated compressive atelectasis in the left lower lobe. There are 2 nodular foci of consolidation identified which could represent septic emboli. Consider ch est CT for further evaluation. Timoteo Davis MD on February 12, 2017 at 21:28 Board Certified Radiologist. This report was verified electronically.
[2017-02-13] VITALS (7 sets, daily range): BP systolic 108–137; BP diastolic 70–84; PULSE 61–79; RESP 16–18; TEMP 96.3–98.2; O2SAT 95–99
[2017-02-13] MEDS: VANCOMYCIN 1,000 MG/NS 250 ML IV SCH ×4 (02:14→17:38)
[2017-02-13] MEDS: ACETAMINOPHEN/HYDROcodone 325 MG/10 MG TAB PO PRN ×3 (02:14→17:44)
[2017-02-13] MEDS: CHLORHEXIDINE GLUCONATE 2 % 1 PACK (2 CLOTHS) TOP SCH (04:00)
[2017-02-13] MEDS: ENOXAPARIN SODIUM 30 MG/0.3 ML SYRINGE SQ SCH ×2 (05:04→17:36)
[2017-02-13 06:35] LABS: INDIRECT BILIRUBIN 0.4 MG/DL (0.0-0.8); TOTAL BILIRUBIN ADULT 0.9 MG/DL (0.2-1.0)
[2017-02-13 07:43] LABS: BACTERIA, URINE RARE /hpf; BLOOD, URINE TRACE (NEG); COMMENT (UR) CULT NOT INDICATED; CULTURE IF INDICATED CULT NOT INDICATED; GLUCOSE,URINE NEG (NEG); KETONE, URINE NEG (NEG); NITRITE,URINE NEG (NEG); URINE COLOR YELLOW (YELLW/STRAW)
[2017-02-13] MEDS: RIFAMPIN 150 MG CAP PO SCH ×2 (10:32→22:13)
[2017-02-13] MEDS: THIAMINE HCL 100 MG TAB PO SCH (10:32)
[2017-02-13] MEDS: FAMOTIDINE 20 MG TAB PO SCH ×2 (10:33→22:14)
[2017-02-13] MEDS: SODIUM CHLORIDE 0.9% FLUSH 10 ML FLUSH IV FLUSH SCH ×2 (10:33→21:00)
[2017-02-13] MEDS: DOCUSATE SODIUM 50 MG/SENNA 8.6 MG TAB PO SCH ×2 (10:33→21:00)
[2017-02-13] MEDS: FOLIC ACID 1 MG TAB PO SCH (10:33)
[2017-02-13] MEDS: CALCIUM CARBONATE 500 MG CHEWABLE TAB CHEW SCH ×2 (10:33→22:14)
[2017-02-13 11:50] LABS: AUTOMATED NEUTROPHIL # 14.4 TH/MM3 (1.8-7.7); BASOPHIL % 0.3 % (0.0-2.0); EOSINOPHIL # 0.2 TH/MM3 (0-0.4); EOSINOPHIL % 0.9 % (0.0-4.0); HEMATOCRIT 31.5 % (39.0-51.0); HEMO FLAGS DIFF FINAL; LYMPH % 9.5 % (9.0-44.0); LYMPHOCYTE # 1.6 TH/MM3 (1.0-4.8); MEAN CELL VOLUME 82.5 FL (80.0-100.0); MEAN CORPUSCULAR HEMOGLOBIN 26.1 PG (27.0-34.0); MEAN CORPUSCULAR HGB CONC 31.7 % (32.0-36.0); MONO % 5.2 % (0.0-8.0); NEUT % 84.1 % (16.0-70.0); PLATELET COUNT 267 TH/MM3 (150-450); RED BLOOD COUNT 3.82 MIL/MM3 (4.50-5.90); RED CELL DISTRIBUTION WIDTH 15.5 % (11.6-17.2); WHITE BLOOD COUNT 17.1 TH/MM3 (4.0-11.0)
[2017-02-13 11:57] LABS: BICARBONATE 28.4 MEQ/L (21.0-32.0); POTASSIUM 3.8 MEQ/L (3.5-5.1)
--- NOTE | 2017-02-13 14:36 | HHI.PR ---
Subjective Remarks Follow up sepsis, anemia. Patient states that he feels "much better" today. States that his pain is well controlled. A few minutes later, the patient asks for his pain medications to be increased. Objective Vitals Vital Signs Date Time Temp Pulse Resp B/P (MAP) Pulse Ox O2 Delivery O2 Flow Rate FiO2 02/13/17 12:00 98.0 67 17 126/77 (93) 97 02/13/17 08:00 97.6 69 18 127/76 (93) 97 02/13/17 04:00 96.6 61 18 137/80 (99) 99 02/13/17 00:00 96.3 64 18 108/78 (88) 97 02/12/17 20:00 101.5 89 18 123/67 (85) 94 02/12/17 19:55 93 02/12/17 16:00 99.3 82 16 168/104 (125) 97 I/O 02/12/17 02/12/17 02/12/17 02/13/17 02/13/17 02/13/17 06:59 14:59 22:59 06:59 14:59 22:59 Intake Total 408 ml Output Total 150 ml 1350 ml Balance 408 ml -150 ml -1350 ml IV Total 408 ml Output Urine Total 150 ml 1350 ml # Bowel Movements 0 Result Diagram: 02/13/17 1056 02/13/17 1056 Imaging Last Impressions Abdomen/Pelvis CT 02/12/17 0000 Signed Impressions: Service Date/Time: January 21:09 - CONCLUSION: 1. No acute finding is identified to explain the abdominal pain. No abscess is present. There is trace simple appearing free fluid in the pelvis. 2. Anasarca. There is minimal subcutaneous air on the right anterior abdominal wall. This may be related to a recent subcutaneous injection. 3. Small bilateral pleural effusions with associated compressive atelectasis in the left lower lobe. There are 2 nodular foci of consolidation identified which could represent septic emboli. Consider chest CT for further evaluation. Timoteo Davis MD Shoulder X-Ray 02/07/17 0000 Signed Impressions: Service Date/Time: Tuesday, February 07, 2017 05:56 - CONCLUSION: Unremarkable single view examination of the left shoulder. Nabil Rai MD Shoulder MRI 02/07/17 0000 Signed Impressions: Service Date/Time: Tuesday, February 07, 2017 17:21 - CONCLUSION: Nondescript edema involving distal clavicle and proximal humerus could be due to marrow contusion, however the appearance is nonspecific in regards to osteomyelitis. There is no abscess. Jaycee Bowser MD Chest X-Ray 02/06/17 1503 Signed Impressions: Service Date/Time: Monday, February 06, 2017 15:27 - CONCLUSION: No acute disease. Joaquin Bangura MD Thoracic Spine MRI 02/06/17 0000 Signed Impressions: Service Date/Time: Monday, February 06, 2017 18:36 - CONCLUSION: Negative thoracic spine MRI without contrast. Timoteo Stapleton MD Lumbar Spine MRI 02/06/17 0000 Signed Impressions: Service Date/Time: Monday, February 06, 2017 18:36 - CONCLUSION: 1. Lumbar spine degenerative changes as above, most conspicuous at L1/L2. 2. Large anterior annular fissure at the L1/L2 disc and reactive appearing marrow edema of the adjacent anterior/inferior corner of the L1 vertebral body. 3. No abscess. No significant foraminal or spinal stenosis. No evidence of osteomyelitis. Timoteo Stapleton MD Cervical Spine MRI 02/06/17 0000 Signed Impressions: Service Date/Time: Monday, February 06, 2017 18:36 - CONCLUSION: Minimal degenerative changes. No stenosis or abscess of the cervical spine. Timoteo Stapleton MD Objective Remarks General: No acute distress. Heart: Regular rate and rhythm. No murmur. Lungs: Clear to auscultation bilaterally. No wheezes, rales, or rhonchi. Breathing is nonlabored. Abdomen: Soft, nontender, nondistended. Extremities: 1+ left foot/ankle edema. Left knee bandaged. Psych: Alert and oriented. Procedures Left knee irrigation debridement by Dr. Monge on 02/08/2017 Urinary Catheter: No Vascular Central Line Catheter: Yes Assessment to: Continue Line: Central Venous Catheter Side: Right Location: Femoral A/P Problem List: (1) Septic shock ICD Code: A41.9 - Sepsis, unspecified organism; R65.21 - Severe sepsis with septic shock Status: Acute (2) NNEKA (acute kidney injury) ICD Code: N17.9 - Acute kidney failure, unspecified Status: Acute (3) Encephalopathy acute ICD Code: G93.40 - Encephalopathy, unspecified Status: Acute (4) Acute renal failure ICD Code: N17.9 - Acute kidney failure, unspecified (5) Hypokalemia ICD Code: E87.6 - Hypokalemia (6) Hypomagnesemia ICD Code: E83.42 - Hypomagnesemia (7) Anemia ICD Code: D64.9 - Anemia, unspecified Assessment and Plan 1. Severe sepsis secondary to endocarditis vs septic arthritis (left knee, shoulder): Continue antibiotics. Appreciate infectious disease recommendations. 2. Bacteremia: Repeat blood cultures have been positive. Blood culture from pending. 3. Hypokalemia: Resolved. 4. Hypomagnesemia: Resolved. 5. IV drug abuse: Counselled. Caution with pain medications. 6. Acute renal failure: Resolved. 7. History of hepatitis C: Limit Tylenol. 8. Severe protein calorie malnutrition: Appreciate dietary recommendations. 9. DVT prophylaxis: Lovenox. Alfred Weller MD Feb 13, 2017 14:36
[2017-02-14] VITALS: BP 137/81; PULSE 63; RESP 16; TEMP 96.2; O2SAT 98
[2017-02-14] MEDS ORDERED: PHARMACY ORDERED LAB ONE (02:45)
[2017-02-14 04:00] VITALS: BP 139/93; PULSE 60; RESP 18; TEMP 96.9; O2SAT 98
[2017-02-14] MEDS: CHLORHEXIDINE GLUCONATE 2 % 1 PACK (2 CLOTHS) TOP SCH (04:00)
[2017-02-14] MEDS: VANCOMYCIN 1,000 MG/NS 250 ML IV SCH ×4 (06:21→14:35)
[2017-02-14] MEDS: ENOXAPARIN SODIUM 30 MG/0.3 ML SYRINGE SQ SCH ×2 (06:21→14:34)
[2017-02-14 07:54] LABS: AUTOMATED NEUTROPHIL # 8.7 TH/MM3 (1.8-7.7); BASOPHIL % 0.4 % (0.0-2.0); EOSINOPHIL # 0.2 TH/MM3 (0-0.4); EOSINOPHIL % 1.8 % (0.0-4.0); HEMATOCRIT 29.6 % (39.0-51.0); LYMPH % 15.2 % (9.0-44.0); LYMPHOCYTE # 1.8 TH/MM3 (1.0-4.8); MEAN CELL VOLUME 82.6 FL (80.0-100.0); MEAN CORPUSCULAR HEMOGLOBIN 27.5 PG (27.0-34.0); MEAN CORPUSCULAR HGB CONC 33.3 % (32.0-36.0); MONO % 10.7 % (0.0-8.0); NEUT % 71.9 % (16.0-70.0); PLATELET COUNT 294 TH/MM3 (150-450); RED BLOOD COUNT 3.59 MIL/MM3 (4.50-5.90); RED CELL DISTRIBUTION WIDTH 15.4 % (11.6-17.2); WHITE BLOOD COUNT 12.1 TH/MM3 (4.0-11.0)
[2017-02-14 08:00] VITALS: BP 148/93; PULSE 73; RESP 18; TEMP 96.9; O2SAT 98
[2017-02-14 08:11] LABS: BICARBONATE 30.3 MEQ/L (21.0-32.0); HEMO FLAGS AUTO DIFF; POTASSIUM 4.4 MEQ/L (3.5-5.1)
[2017-02-14] MEDS: RIFAMPIN 150 MG CAP PO SCH ×2 (08:56→21:00)
[2017-02-14] MEDS: SODIUM CHLORIDE 0.9% FLUSH 10 ML FLUSH IV FLUSH SCH ×2 (08:56→21:01)
[2017-02-14] MEDS: THIAMINE HCL 100 MG TAB PO SCH (08:56)
[2017-02-14] MEDS: FOLIC ACID 1 MG TAB PO SCH (08:56)
[2017-02-14] MEDS: DOCUSATE SODIUM 50 MG/SENNA 8.6 MG TAB PO SCH ×2 (08:56→21:00)
[2017-02-14] MEDS: CALCIUM CARBONATE 500 MG CHEWABLE TAB CHEW SCH ×2 (08:56→21:00)
[2017-02-14] MEDS: ACETAMINOPHEN/HYDROcodone 325 MG/10 MG TAB PO PRN (08:56)
[2017-02-14] MEDS: FAMOTIDINE 20 MG TAB PO SCH ×2 (08:56→21:00)
[2017-02-14 09:20] LABS: METAMYELOCYTES 2 % (0-1)
[2017-02-14 09:21] LABS: BANDS 1 % (0-6); EOSINOPHILS 1 % (0-4); MYELOCYTES 1 % (0-0); NEUTROPHIL # MANUAL DIFF 10.4 TH/MM3 (1.8-7.7); POLYS (SEG NEUTROPHILS) 82 % (16-70); WBC DIFF SAMPLE 100
[2017-02-14 09:23] LABS: DOHLE BODIES PRESENT (NONE SEEN); TOXIC GRANULATION 2+ (NORMAL)
[2017-02-14 09:24] LABS: ACANTHOCYTES OCC (NORMAL); PLATELET ESTIMATE SMEAR NORMAL (NORMAL); PLATELET MORPHOLOGY ENLARGED (NORMAL); SCAN/DIFF FINAL DIFF MANUAL
[2017-02-14 12:00] VITALS: BP 110/69; PULSE 63; RESP 18; TEMP 96.4; O2SAT 99
--- NOTE | 2017-02-14 13:37 | HHI.PR ---
Subjective Remarks Follow up bacteremia. Patient has no complaints at this time. Pain is controlled. States that he gets cold a lot. Objective Vitals Vital Signs Date Time Temp Pulse Resp B/P (MAP) Pulse Ox O2 Delivery O2 Flow Rate FiO2 02/14/17 12:00 96.4 63 18 110/69 (83) 99 02/14/17 08:00 96.9 73 18 148/93 (111) 98 02/14/17 04:00 96.9 60 18 139/93 (108) 98 02/14/17 00:00 96.2 63 16 137/81 (99) 98 02/13/17 20:00 98.2 69 16 119/70 (86) 96 02/13/17 16:00 97.6 68 18 111/84 (93) 95 I/O 02/13/17 02/13/17 02/13/17 02/14/17 02/14/17 02/14/17 07:00 15:00 23:00 07:00 15:00 23:00 Intake Total 480 ml Output Total 1350 ml 0 ml 1100 ml Balance -1350 ml 480 ml -1100 ml Intake Oral 480 ml Output Urine Total 1350 ml 0 ml 1100 ml Result Diagram: 02/14/17 0640 02/14/17 0640 Imaging Last Impressions Abdomen/Pelvis CT 02/12/17 0000 Signed Impressions: Service Date/Time: January 21:09 - CONCLUSION: 1. No acute finding is identified to explain the abdominal pain. No abscess is present. There is trace simple appearing free fluid in the pelvis. 2. Anasarca. There is minimal subcutaneous air on the right anterior abdominal wall. This may be related to a recent subcutaneous injection. 3. Small bilateral pleural effusions with associated compressive atelectasis in the left lower lobe. There are 2 nodular foci of consolidation identified which could represent septic emboli. Consider chest CT for further evaluation. Timoteo Davis MD Shoulder X-Ray 02/07/17 0000 Signed Impressions: Service Date/Time: Tuesday, February 07, 2017 05:56 - CONCLUSION: Unremarkable single view examination of the left shoulder. Nabil Rai MD Shoulder MRI 02/07/17 0000 Signed Impressions: Service Date/Time: Tuesday, February 07, 2017 17:21 - CONCLUSION: Nondescript edema involving distal clavicle and proximal humerus could be due to marrow contusion, however the appearance is nonspecific in regards to osteomyelitis. There is no abscess. Jaycee Bowser MD Chest X-Ray 02/06/17 1503 Signed Impressions: Service Date/Time: Monday, February 06, 2017 15:27 - CONCLUSION: No acute disease. Joaquin Bangura MD Thoracic Spine MRI 02/06/17 0000 Signed Impressions: Service Date/Time: Monday, February 06, 2017 18:36 - CONCLUSION: Negative thoracic spine MRI without contrast. Timoteo Stapleton MD Lumbar Spine MRI 02/06/17 0000 Signed Impressions: Service Date/Time: Thursday, February 06, 2017 18:36 - CONCLUSION: 1. Lumbar spine degenerative changes as above, most conspicuous at L1/L2. 2. Large anterior annular fissure at the L1/L2 disc and reactive appearing marrow edema of the adjacent anterior/inferior corner of the L1 vertebral body. 3. No abscess. No significant foraminal or spinal stenosis. No evidence of osteomyelitis. Timoteo Stapleton MD Cervical Spine MRI 02/06/17 0000 Signed Impressions: Service Date/Time: Monday, February 06, 2017 18:36 - CONCLUSION: Minimal degenerative changes. No stenosis or abscess of the cervical spine. Timoteo Stapleton MD Objective Remarks General: No acute distress. Heart: Regular rate and rhythm. No murmur. Lungs: Clear to auscultation bilaterally. No wheezes, rales, or rhonchi. Breathing is nonlabored. Abdomen: Soft, nontender, nondistended. Extremities: 1+ left foot/ankle edema. Left knee bandaged. Psych: Alert and oriented. Procedures Left knee irrigation debridement by Dr. Monge on 02/08/2017 Urinary Catheter: No Vascular Central Line Catheter: Yes Assessment to: Continue Line: Central Venous Catheter Side: Right Location: Femoral A/P Problem List: (1) Septic shock ICD Code: A41.9 - Sepsis, unspecified organism; R65.21 - Severe sepsis with septic shock Status: Acute (2) NNEKA (acute kidney injury) ICD Code: N17.9 - Acute kidney failure, unspecified Status: Acute (3) Encephalopathy acute ICD Code: G93.40 - Encephalopathy, unspecified Status: Acute (4) Acute renal failure ICD Code: N17.9 - Acute kidney failure, unspecified (5) Hypokalemia ICD Code: E87.6 - Hypokalemia (6) Hypomagnesemia ICD Code: E83.42 - Hypomagnesemia (7) Anemia ICD Code: D64.9 - Anemia, unspecified Assessment and Plan 1. Severe sepsis secondary to endocarditis vs septic arthritis (left knee, shoulder): Continue antibiotics. Appreciate infectious disease recommendations. 2. Bacteremia: Repeat blood cultures have been positive. Blood culture from is negative so far. Blood culture from 02/14 is pending. 3. Hypokalemia: Resolved. 4. Hypomagnesemia: Resolved. 5. IV drug abuse: Counselled. Caution with pain medications. 6. Acute renal failure: Resolved. 7. History of hepatitis C: Limit Tylenol. 8. Severe protein calorie malnutrition: Appreciate dietary recommendations. 9. DVT prophylaxis: Lovenox. Discharge Planning When cultures are negative and antibiotics are arranged per infectious disease. Alfred Weller MD Feb 14, 2017 13:37
[2017-02-14] MEDS: oxyCODONE/ACETAMINOPHEN 5 MG/325 MG TAB PO PRN ×2 (14:47→19:17)
[2017-02-14 16:00] VITALS: BP 121/73; PULSE 77; RESP 16; TEMP 96.4; O2SAT 97
[2017-02-14 20:00] VITALS: BP 156/99; PULSE 76; RESP 18; TEMP 98; O2SAT 98
[2017-02-15] VITALS (7 sets, daily range): BP systolic 117–154; BP diastolic 69–96; PULSE 65–84; RESP 14–18; TEMP 95.9–98.8; O2SAT 96–98
[2017-02-15] MEDS: oxyCODONE/ACETAMINOPHEN 5 MG/325 MG TAB PO PRN ×5 (03:49→21:58)
[2017-02-15] MEDS: VANCOMYCIN 1,000 MG/NS 250 ML IV SCH ×4 (03:50→14:21)
[2017-02-15] MEDS: ENOXAPARIN SODIUM 30 MG/0.3 ML SYRINGE SQ SCH ×2 (03:50→14:20)
[2017-02-15] MEDS: CHLORHEXIDINE GLUCONATE 2 % 1 PACK (2 CLOTHS) TOP SCH (03:52)
[2017-02-15] MEDS: CALCIUM CARBONATE 500 MG CHEWABLE TAB CHEW SCH ×2 (07:46→21:53)
[2017-02-15] MEDS: DOCUSATE SODIUM 50 MG/SENNA 8.6 MG TAB PO SCH ×2 (08:17→21:00)
[2017-02-15] MEDS: FAMOTIDINE 20 MG TAB PO SCH ×2 (08:17→21:53)
[2017-02-15] MEDS: THIAMINE HCL 100 MG TAB PO SCH (08:17)
[2017-02-15] MEDS: FOLIC ACID 1 MG TAB PO SCH (08:17)
[2017-02-15] MEDS: SODIUM CHLORIDE 0.9% FLUSH 10 ML FLUSH IV FLUSH SCH ×2 (08:17→21:53)
[2017-02-15] MEDS: RIFAMPIN 150 MG CAP PO SCH ×2 (08:48→21:53)
--- NOTE | 2017-02-15 12:51 | HHI.PR ---
Subjective Remarks Follow up bacteremia. Patient has no complaints at this time. Wants to go home. Objective Vitals Vital Signs Date Time Temp Pulse Resp B/P (MAP) Pulse Ox O2 Delivery O2 Flow Rate FiO2 02/15/17 12:00 96.0 75 14 117/75 (89) 98 02/15/17 08:00 97.3 83 16 154/96 (115) 98 02/15/17 04:00 97.8 77 18 128/69 (88) 98 02/15/17 00:00 95.9 65 18 138/84 (102) 97 02/14/17 20:00 98.0 76 18 156/99 (118) 98 02/14/17 16:00 96.4 77 16 121/73 (89) 97 I/O 02/14/17 02/14/17 02/14/17 02/15/17 02/15/17 02/15/17 06:59 14:59 22:59 06:59 14:59 22:59 Intake Total 2800 ml 730 ml Output Total 1100 ml 1200 ml 900 ml Balance -1100 ml 1600 ml -170 ml Intake Oral 2800 ml 480 ml IV Total 250 ml Output Urine Total 1100 ml 1200 ml 900 ml # Bowel Movements 1 Result Diagram: 02/14/17 0640 02/14/17 0640 Imaging Last Impressions Abdomen/Pelvis CT 02/12/17 0000 Signed Impressions: Service Date/Time: January 21:09 - CONCLUSION: 1. No acute finding is identified to explain the abdominal pain. No abscess is present. There is trace simple appearing free fluid in the pelvis. 2. Anasarca. There is minimal subcutaneous air on the right anterior abdominal wall. This may be related to a recent subcutaneous injection. 3. Small bilateral pleural effusions with associated compressive atelectasis in the left lower lobe. There are 2 nodular foci of consolidation identified which could represent septic emboli. Consider chest CT for further evaluation. Timoteo Davis MD Shoulder X-Ray 02/07/17 0000 Signed Impressions: Service Date/Time: Tuesday, February 07, 2017 05:56 - CONCLUSION: Unremarkable single view examination of the left shoulder. Nabil Rai MD Shoulder MRI 02/07/17 0000 Signed Impressions: Service Date/Time: Tuesday, February 07, 2017 17:21 - CONCLUSION: Nondescript edema involving distal clavicle and proximal humerus could be due to marrow contusion, however the appearance is nonspecific in regards to osteomyelitis. There is no abscess. Jaycee Bowser MD Chest X-Ray 02/06/17 1503 Signed Impressions: Service Date/Time: Monday, February 06, 2017 15:27 - CONCLUSION: No acute disease. Joaquin Bangura MD Thoracic Spine MRI 02/06/17 0000 Signed Impressions: Service Date/Time: Monday, February 06, 2017 18:36 - CONCLUSION: Negative thoracic spine MRI without contrast. Timoteo Stapleton MD Lumbar Spine MRI 02/06/17 0000 Signed Impressions: Service Date/Time: Monday, February 06, 2017 18:36 - CONCLUSION: 1. Lumbar spine degenerative changes as above, most conspicuous at L1/L2. 2. Large anterior annular fissure at the L1/L2 disc and reactive appearing marrow edema of the adjacent anterior/inferior corner of the L1 vertebral body. 3. No abscess. No significant foraminal or spinal stenosis. No evidence of osteomyelitis. Timoteo Stapleton MD Cervical Spine MRI 02/06/17 0000 Signed Impressions: Service Date/Time: Monday, February 06, 2017 18:36 - CONCLUSION: Minimal degenerative changes. No stenosis or abscess of the cervical spine. Timoteo Stapleton MD Objective Remarks General: No acute distress. Heart: Regular rate and rhythm. No murmur. Lungs: Clear to auscultation bilaterally. No wheezes, rales, or rhonchi. Breathing is nonlabored. Abdomen: Soft, nontender, nondistended. Extremities: Trace left foot/ankle edema. Left knee bandaged. Psych: Alert and oriented. Procedures Left knee irrigation debridement by Dr. Monge on 02/08/2017 Urinary Catheter: No Vascular Central Line Catheter: Yes Assessment to: Continue Line: Central Venous Catheter Side: Right Location: Femoral A/P Problem List: (1) Septic shock ICD Code: A41.9 - Sepsis, unspecified organism; R65.21 - Severe sepsis with septic shock Status: Acute (2) NNEKA (acute kidney injury) ICD Code: N17.9 - Acute kidney failure, unspecified Status: Acute (3) Encephalopathy acute ICD Code: G93.40 - Encephalopathy, unspecified Status: Acute (4) Acute renal failure ICD Code: N17.9 - Acute kidney failure, unspecified (5) Hypokalemia ICD Code: E87.6 - Hypokalemia (6) Hypomagnesemia ICD Code: E83.42 - Hypomagnesemia (7) Anemia ICD Code: D64.9 - Anemia, unspecified Assessment and Plan 1. Severe sepsis secondary to endocarditis vs septic arthritis (left knee, shoulder): Continue antibiotics. Appreciate infectious disease recommendations. 2. Bacteremia: Multiple blood cultures have been positive for MRSA. Blood cultures from 02/13 and 02/14 are negative so far. 3. Hypokalemia: Resolved. 4. Hypomagnesemia: Resolved. 5. IV drug abuse: Counselled. Caution with pain medications. 6. Acute renal failure: Resolved. 7. History of hepatitis C: Limit Tylenol. 8. Severe protein calorie malnutrition: Appreciate dietary recommendations. 9. DVT prophylaxis: Lovenox. Discharge Planning When cultures are negative and antibiotics are arranged per infectious disease. Alfred Weller MD Feb 15, 2017 12:51
[2017-02-15] MEDS: ZOLPIDEM TARTRATE 5 MG TAB PO PRN (21:58)
[2017-02-16] VITALS: BP 146/81; PULSE 69; RESP 18; TEMP 96.5; O2SAT 98
[2017-02-16] MEDS: VANCOMYCIN 1,000 MG/NS 250 ML IV SCH ×2 (03:15)
[2017-02-16] MEDS: ENOXAPARIN SODIUM 30 MG/0.3 ML SYRINGE SQ SCH ×3 (03:15→20:41)
[2017-02-16] MEDS: CHLORHEXIDINE GLUCONATE 2 % 1 PACK (2 CLOTHS) TOP SCH ×2 (03:15→20:41)
[2017-02-16] MEDS: oxyCODONE/ACETAMINOPHEN 5 MG/325 MG TAB PO PRN ×5 (05:26→23:41)
[2017-02-16 08:00] VITALS: BP 137/92; PULSE 76; RESP 20; TEMP 97; O2SAT 96
[2017-02-16 08:15] VITALS: O2SAT 94
[2017-02-16] MEDS: RIFAMPIN 150 MG CAP PO SCH ×2 (10:09→20:33)
[2017-02-16] MEDS: THIAMINE HCL 100 MG TAB PO SCH (10:09)
[2017-02-16] MEDS: CALCIUM CARBONATE 500 MG CHEWABLE TAB CHEW SCH ×2 (10:09→20:41)
[2017-02-16] MEDS: DOCUSATE SODIUM 50 MG/SENNA 8.6 MG TAB PO SCH ×2 (10:10→20:41)
[2017-02-16] MEDS: FAMOTIDINE 20 MG TAB PO SCH ×2 (10:10→20:41)
[2017-02-16] MEDS: FOLIC ACID 1 MG TAB PO SCH (10:10)
--- NOTE | 2017-02-16 10:52 | HHI.PR ---
Subjective Remarks Follow up bacteremia. Patient has no complaints at this time. Wants to go home. Pain is controlled. Objective Vitals Vital Signs Date Time Temp Pulse Resp B/P (MAP) Pulse Ox O2 Delivery O2 Flow Rate FiO2 02/16/17 08:45 Room Air 02/16/17 08:15 94 02/16/17 08:00 97.0 76 20 137/92 (107) 96 02/16/17 06:26 20 02/16/17 00:00 96.5 69 18 146/81 (102) 98 02/16/17 00:00 Room Air 02/15/17 22:28 150/84 (106) 02/15/17 20:00 Room Air 02/15/17 20:00 96.7 84 18 152/96 (114) 96 02/15/17 16:00 98.8 76 16 127/72 (90) 96 02/15/17 12:00 96.0 75 14 117/75 (89) 98 I/O 02/15/17 02/15/17 02/15/17 02/16/17 02/16/17 02/16/17 07:00 15:00 23:00 07:00 15:00 23:00 Intake Total 730 ml 2400 ml 250 ml Output Total 900 ml 1200 ml 1000 ml Balance -170 ml 1200 ml -750 ml Intake Oral 480 ml 2400 ml IV Total 250 ml 250 ml Output Urine Total 900 ml 1200 ml 1000 ml # Bowel Movements 1 Result Diagram: 02/14/17 0640 02/14/17 0640 Imaging Last Impressions Abdomen/Pelvis CT 02/12/17 0000 Signed Impressions: Service Date/Time: January 21:09 - CONCLUSION: 1. No acute finding is identified to explain the abdominal pain. No abscess is present. There is trace simple appearing free fluid in the pelvis. 2. Anasarca. There is minimal subcutaneous air on the right anterior abdominal wall. This may be related to a recent subcutaneous injection. 3. Small bilateral pleural effusions with associated compressive atelectasis in the left lower lobe. There are 2 nodular foci of consolidation identified which could represent septic emboli. Consider chest CT for further evaluation. Timoteo Davis MD Shoulder X-Ray 02/07/17 0000 Signed Impressions: Service Date/Time: Tuesday, February 07, 2017 05:56 - CONCLUSION: Unremarkable single view examination of the left shoulder. Nabil Rai MD Shoulder MRI 02/07/17 0000 Signed Impressions: Service Date/Time: Tuesday, February 07, 2017 17:21 - CONCLUSION: Nondescript edema involving distal clavicle and proximal humerus could be due to marrow contusion, however the appearance is nonspecific in regards to osteomyelitis. There is no abscess. Jaycee Bowser MD Chest X-Ray 02/06/17 1503 Signed Impressions: Service Date/Time: Monday, February 06, 2017 15:27 - CONCLUSION: No acute disease. Joaquin Bangura MD Thoracic Spine MRI 02/06/17 0000 Signed Impressions: Service Date/Time: Monday, February 06, 2017 18:36 - CONCLUSION: Negative thoracic spine MRI without contrast. Timoteo Stapleton MD Lumbar Spine MRI 02/06/17 0000 Signed Impressions: Service Date/Time: Monday, February 06, 2017 18:36 - CONCLUSION: 1. Lumbar spine degenerative changes as above, most conspicuous at L1/L2. 2. Large anterior annular fissure at the L1/L2 disc and reactive appearing marrow edema of the adjacent anterior/inferior corner of the L1 vertebral body. 3. No abscess. No significant foraminal or spinal stenosis. No evidence of osteomyelitis. Timoteo Stapleton MD Cervical Spine MRI 02/06/17 0000 Signed Impressions: Service Date/Time: Monday, February 06, 2017 18:36 - CONCLUSION: Minimal degenerative changes. No stenosis or abscess of the cervical spine. Timoteo Stapleton MD Objective Remarks General: No acute distress. Heart: Regular rate and rhythm. No murmur. Lungs: Clear to auscultation bilaterally. No wheezes, rales, or rhonchi. Breathing is nonlabored. Abdomen: Soft, nontender, nondistended. Extremities: Trace left foot/ankle edema. Left knee bandaged. Psych: Alert and oriented. Procedures Left knee irrigation debridement by Dr. Monge on 02/08/2017 Urinary Catheter: No Vascular Central Line Catheter: Yes Assessment to: Continue Line: Central Venous Catheter Side: Right Location: Femoral A/P Problem List: (1) Septic shock ICD Code: A41.9 - Sepsis, unspecified organism; R65.21 - Severe sepsis with septic shock Status: Acute (2) NNEKA (acute kidney injury) ICD Code: N17.9 - Acute kidney failure, unspecified Status: Acute (3) Encephalopathy acute ICD Code: G93.40 - Encephalopathy, unspecified Status: Acute (4) Acute renal failure ICD Code: N17.9 - Acute kidney failure, unspecified (5) Hypokalemia ICD Code: E87.6 - Hypokalemia (6) Hypomagnesemia ICD Code: E83.42 - Hypomagnesemia (7) Anemia ICD Code: D64.9 - Anemia, unspecified Assessment and Plan 1. Severe sepsis secondary to endocarditis vs septic arthritis (left knee, shoulder): Continue antibiotics. Appreciate infectious disease recommendations. 2. Bacteremia: Multiple blood cultures have been positive for MRSA. Blood cultures from 02/13 and 02/14 are growing gram positive cocci. 4. Hypomagnesemia: Resolved. 5. IV drug abuse: Counselled. Caution with pain medications. 6. Acute renal failure: Resolved. 7. History of hepatitis C: Limit Tylenol. 8. Severe protein calorie malnutrition: Appreciate dietary recommendations. 9. DVT prophylaxis: Lovenox. Discussed with Dr. Pierce. Discharge Planning No safe discharge at this time. Patient is homeless and will need long-term IV antibiotics. Alfred Weller MD Feb 16, 2017 10:52
[2017-02-16 12:00] VITALS: BP 111/78; PULSE 75; RESP 20; TEMP 97.4; O2SAT 96
[2017-02-16] MEDS: DAPTOmycin INJ 250 MG in SODIUM CHLORIDE 0.9% INJ 100 ML IV SCH (14:14)
[2017-02-16] MEDS ORDERED: PHARMACY ORDERED LAB ONE (14:45)
[2017-02-16 16:00] VITALS: BP 112/67; PULSE 87; RESP 20; TEMP 97.7; O2SAT 98
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
[2017-02-16 20:00] VITALS: BP 143/82; PULSE 84; RESP 18; TEMP 97.6; O2SAT 95
[2017-02-16] MEDS: ZOLPIDEM TARTRATE 5 MG TAB PO PRN (20:32)
[2017-02-16] MEDS: SODIUM CHLORIDE 0.9% FLUSH 10 ML FLUSH IV FLUSH SCH (20:40)
[2017-02-17] VITALS: BP 134/85; PULSE 80; RESP 18; TEMP 97.9; O2SAT 96
[2017-02-17] MEDS: oxyCODONE/ACETAMINOPHEN 5 MG/325 MG TAB PO PRN ×5 (04:48→21:29)
[2017-02-17 08:00] VITALS: BP 112/69; PULSE 83; RESP 18; TEMP 98; O2SAT 96
[2017-02-17] MEDS: SODIUM CHLORIDE 0.9% FLUSH 10 ML FLUSH IV FLUSH SCH ×2 (09:00→21:35)
[2017-02-17] MEDS: THIAMINE HCL 100 MG TAB PO SCH (09:12)
[2017-02-17] MEDS: RIFAMPIN 150 MG CAP PO SCH ×2 (09:12→21:29)
[2017-02-17] MEDS: FOLIC ACID 1 MG TAB PO SCH (09:13)
[2017-02-17] MEDS: CALCIUM CARBONATE 500 MG CHEWABLE TAB CHEW SCH ×2 (09:13→21:00)
[2017-02-17] MEDS: DOCUSATE SODIUM 50 MG/SENNA 8.6 MG TAB PO SCH ×2 (09:13→21:00)
--- NOTE | 2017-02-17 11:47 | RADRPT ---
EXAM DATE/TIME: 02/17/2017 11:12 [facility] COMPARISON: No previous studies available for comparison. INDICATIONS : Patient with sepsis. Needs new access. MEDICAL HISTORY : 1. Sepsis 2. NNEKA 3. AMS 4. IV drug abuse 5. Hep C SURGICAL HISTORY : 1. Repair of fx mandible 2. Bilateral pnx thorax ENCOUNTER: Initial ACUITY: 1 week PAIN SCORE: 2/10 LOCATION: neck and back FLUORO TIME: 0.1 minutes IMAGE SERIES: 0 ACCESS: Right internal jugular vein DEVICE(S): 1.) 7 Spanish triple lumen 20 cm Arrow central line PROCEDURE : 1. Ultrasound guided venipuncture. 2. Fluoroscopic guidance. 3. Central line placement. The risks, benefits and alternatives to the procedure were explained and verbal and written consent w as obtained. The site was prepped in sterile fashion. Full sterile technique was used, including ca p, mask, sterile gloves and gown and a large sterile sheet. Hand hygiene and 2% chlorhexidine prep w as utilized per protocol for cutaneous antisepsis with appropriate dry time for site. Sterile gel an d sterile probe cover were utilized for ultrasound guidance. The skin and subcutaneous tissues were infiltrated with local anesthetic solution. A suitable site a harika the vein was selected with ultrasound and fluoroscopic guidance. A small incision was made. Th e vein was accessed under direct ultrasound visualization using the micropuncture technique. The marycarmen ropuncture set was exchanged for a 0.035 wire. The tract was dilated. The catheter was advanced int o position under direct fluoroscopic visualization. The catheter was fixed in place with suture and a sterile dressing was applied. The patient tolerated the procedure well and there were no complications. CONCLUSION: Uncomplicated line placement as above. Ryder Howell MD on February 17, 2017 at 11:46 Board Certified Radiologist. This report was verified electronically.
[2017-02-17 12:00] VITALS: BP 117/57; PULSE 81; RESP 20; TEMP 97.6; O2SAT 99
--- NOTE | 2017-02-17 13:18 | HHI.PR ---
Subjective Remarks Follow up bacteremia. Patient states that he wants to go home. No complaints at this time. Objective Vitals Vital Signs Date Time Temp Pulse Resp B/P (MAP) Pulse Ox O2 Delivery O2 Flow Rate FiO2 02/17/17 12:00 97.6 81 20 117/57 (77) 99 02/17/17 08:00 98.0 83 18 112/69 (83) 96 02/17/17 00:00 97.9 80 18 134/85 (101) 96 02/16/17 20:00 97.6 84 18 143/82 (102) 95 02/16/17 16:00 97.7 87 20 112/67 (82) 98 I/O 02/16/17 02/16/17 02/16/17 02/17/17 02/17/17 02/17/17 06:59 14:59 22:59 06:59 14:59 22:59 Intake Total 250 ml 600 ml 480 ml Output Total 1000 ml 1125 ml 1400 ml Balance -750 ml -525 ml -920 ml Intake Oral 600 ml 480 ml IV Total 250 ml Output Urine Total 1000 ml 1125 ml 1400 ml # Bowel Movements 1 Result Diagram: 02/14/17 0640 02/14/17 0640 Imaging Last Impressions Central Venous Line 02/17/17 0000 Signed Impressions: Service Date/Time: Friday, February 17, 2017 11:12 - CONCLUSION: Uncomplicated line placement as above. Ryder Howell MD Abdomen/Pelvis CT 02/12/17 0000 Signed Impressions: Service Date/Time: January 21:09 - CONCLUSION: 1. No acute finding is identified to explain the abdominal pain. No abscess is present. There is trace simple appearing free fluid in the pelvis. 2. Anasarca. There is minimal subcutaneous air on the right anterior abdominal wall. This may be related to a recent subcutaneous injection. 3. Small bilateral pleural effusions with associated compressive atelectasis in the left lower lobe. There are 2 nodular foci of consolidation identified which could represent septic emboli. Consider chest CT for further evaluation. Timoteo Davis MD Shoulder X-Ray 02/07/17 0000 Signed Impressions: Service Date/Time: Tuesday, February 07, 2017 05:56 - CONCLUSION: Unremarkable single view examination of the left shoulder. Nabil Rai MD Shoulder MRI 02/07/17 0000 Signed Impressions: Service Date/Time: Tuesday, February 07, 2017 17:21 - CONCLUSION: Nondescript edema involving distal clavicle and proximal humerus could be due to marrow contusion, however the appearance is nonspecific in regards to osteomyelitis. There is no abscess. Jaycee Bowser MD Chest X-Ray 02/06/17 1503 Signed Impressions: Service Date/Time: Monday, February 06, 2017 15:27 - CONCLUSION: No acute disease. Joaquin Bangura MD Thoracic Spine MRI 02/06/17 0000 Signed Impressions: Service Date/Time: Monday, February 06, 2017 18:36 - CONCLUSION: Negative thoracic spine MRI without contrast. Timoteo Stapleton MD Lumbar Spine MRI 02/06/17 0000 Signed Impressions: Service Date/Time: Monday, February 06, 2017 18:36 - CONCLUSION: 1. Lumbar spine degenerative changes as above, most conspicuous at L1/L2. 2. Large anterior annular fissure at the L1/L2 disc and reactive appearing marrow edema of the adjacent anterior/inferior corner of the L1 vertebral body. 3. No abscess. No significant foraminal or spinal stenosis. No evidence of osteomyelitis. Timoteo Stapleton MD Cervical Spine MRI 02/06/17 0000 Signed Impressions: Service Date/Time: Monday, February 06, 2017 18:36 - CONCLUSION: Minimal degenerative changes. No stenosis or abscess of the cervical spine. Timoteo Stapleton MD Objective Remarks General: No acute distress. Heart: Regular rate and rhythm. No murmur. Lungs: Clear to auscultation bilaterally. No wheezes, rales, or rhonchi. Breathing is nonlabored. Abdomen: Soft, nontender, nondistended. Extremities: Trace left foot/ankle edema. Left knee bandaged. Psych: Alert and oriented. Procedures Left knee irrigation debridement by Dr. Monge on 02/08/2017 Urinary Catheter: No Vascular Central Line Catheter: No Line: Central Venous Catheter Side: Right Location: Femoral A/P Problem List: (1) Septic shock ICD Code: A41.9 - Sepsis, unspecified organism; R65.21 - Severe sepsis with septic shock Status: Acute (2) NNEKA (acute kidney injury) ICD Code: N17.9 - Acute kidney failure, unspecified Status: Acute (3) Encephalopathy acute ICD Code: G93.40 - Encephalopathy, unspecified Status: Acute (4) Acute renal failure ICD Code: N17.9 - Acute kidney failure, unspecified (5) Hypokalemia ICD Code: E87.6 - Hypokalemia (6) Hypomagnesemia ICD Code: E83.42 - Hypomagnesemia (7) Anemia ICD Code: D64.9 - Anemia, unspecified Assessment and Plan 1. Severe sepsis secondary to endocarditis vs septic arthritis (left knee, shoulder): Continue antibiotics. Appreciate infectious disease recommendations. 2. Bacteremia: Multiple blood cultures have been positive for MRSA. Blood cultures from 02/13 and 02/14 are growing gram positive cocci. Femoral central line removed. Tip sent for culture. New central line placed. Changed from vancomycin to Cubicin. 4. Hypomagnesemia: Resolved. 5. IV drug abuse: Counselled. Caution with pain medications. 6. Acute renal failure: Resolved. 7. History of hepatitis C: Limit Tylenol. 8. Severe protein calorie malnutrition: Appreciate dietary recommendations. 9. DVT prophylaxis: Lovenox. Discharge Planning No safe discharge at this time. Patient is homeless and will need long-term IV antibiotics. Alfred Weller MD Feb 17, 2017 13:18
[2017-02-17] MEDS: DAPTOmycin INJ 250 MG in SODIUM CHLORIDE 0.9% INJ 100 ML IV SCH (13:48)
--- NOTE | 2017-02-17 14:14 | PD.RAD ---
Post Procedure Progress Note Pre Procedure Diagnosis: (1) Cellulitis of sternum Post Procedure Diagnosis: (1) Cellulitis of sternum Procedure Date: Feb 17, 2017 Supervising Radiologist: Ryder Howell Proceduralist/Assist: RT Marcelino(R) Anesthesia: Local Plan of Activity Patient to Unit: Nursing Unit Patient Condition: Good See PACS Report for procedural detail/treatment Central Venous Access Device Procedure 1 Right Internal Jugular Central Line Placement triple lumen Ryder Howell MD Feb 17, 2017 14:14
[2017-02-17] MEDS ORDERED: SODIUM CHLORIDE 0.9% FLUSH 10 ML FLUSH IVF PRN (14:15)
[2017-02-17 16:00] VITALS: BP 118/68; PULSE 84; RESP 20; TEMP 98.1; O2SAT 97
[2017-02-17 20:00] VITALS: BP 117/65; PULSE 88; RESP 18; TEMP 97.5; O2SAT 95
[2017-02-17] MEDS: FAMOTIDINE 20 MG TAB PO SCH (21:28)
[2017-02-17] MEDS: ZOLPIDEM TARTRATE 5 MG TAB PO PRN (21:28)
[2017-02-17] MEDS: CHLORHEXIDINE GLUCONATE 2 % 1 PACK (2 CLOTHS) TOP SCH (21:36)
[2017-02-17] MEDS: ENOXAPARIN SODIUM 30 MG/0.3 ML SYRINGE SQ SCH (21:36)
[2017-02-17 21:38] VITALS: O2SAT 96
[2017-02-18] VITALS: BP 120/70; PULSE 86; RESP 18; TEMP 97.7; O2SAT 95
[2017-02-18] MEDS: oxyCODONE/ACETAMINOPHEN 5 MG/325 MG TAB PO PRN ×6 (01:43→22:06)
[2017-02-18 05:49] LABS: AUTOMATED NEUTROPHIL # 12.1 TH/MM3 (1.8-7.7); BASOPHIL # 0.1 TH/MM3 (0-0.2); BASOPHIL % 0.4 % (0.0-2.0); EOSINOPHIL # 0.1 TH/MM3 (0-0.4); EOSINOPHIL % 0.7 % (0.0-4.0); HEMATOCRIT 32.5 % (39.0-51.0); HEMO FLAGS DIFF FINAL; LYMPHOCYTE # 2.2 TH/MM3 (1.0-4.8); MEAN CELL VOLUME 82.4 FL (80.0-100.0); MEAN CORPUSCULAR HEMOGLOBIN 27.4 PG (27.0-34.0); MEAN CORPUSCULAR HGB CONC 33.3 % (32.0-36.0); MONO % 7.4 % (0.0-8.0); NEUT % 77.5 % (16.0-70.0); PLATELET COUNT 386 TH/MM3 (150-450); RED BLOOD COUNT 3.95 MIL/MM3 (4.50-5.90); RED CELL DISTRIBUTION WIDTH 15.4 % (11.6-17.2); WHITE BLOOD COUNT 15.6 TH/MM3 (4.0-11.0)
[2017-02-18 06:17] LABS: MAGNESIUM 2.1 MG/DL (1.5-2.5); POTASSIUM 4.3 MEQ/L (3.5-5.1)
[2017-02-18 08:00] VITALS: BP 115/79; PULSE 87; RESP 16; TEMP 97.5; O2SAT 97
[2017-02-18] MEDS: DOCUSATE SODIUM 50 MG/SENNA 8.6 MG TAB PO SCH ×2 (09:00→20:15)
[2017-02-18] MEDS: SODIUM CHLORIDE 0.9% FLUSH 10 ML FLUSH IVF SCH (09:00)
[2017-02-18] MEDS: THIAMINE HCL 100 MG TAB PO SCH (09:51)
[2017-02-18] MEDS: RIFAMPIN 150 MG CAP PO SCH ×2 (09:51→20:14)
[2017-02-18] MEDS: CALCIUM CARBONATE 500 MG CHEWABLE TAB CHEW SCH ×2 (09:51→20:15)
[2017-02-18] MEDS: FAMOTIDINE 20 MG TAB PO SCH ×2 (09:51→20:15)
[2017-02-18] MEDS: FOLIC ACID 1 MG TAB PO SCH (09:51)
[2017-02-18 12:00] VITALS: BP 118/76; PULSE 102; RESP 16; TEMP 98.8; O2SAT 98
[2017-02-18] MEDS: SODIUM CHLORIDE 0.9% FLUSH 10 ML FLUSH IV FLUSH SCH ×2 (13:15→20:16)
[2017-02-18] MEDS: DAPTOmycin INJ 250 MG in SODIUM CHLORIDE 0.9% INJ 100 ML IV SCH (13:17)
--- NOTE | 2017-02-18 15:07 | HHI.PR ---
Subjective Remarks Follow up bacteremia. Patient reporting pain from the central line placement. Also having anxiety and "restless legs". Objective Vitals Vital Signs Date Time Temp Pulse Resp B/P (MAP) Pulse Ox O2 Delivery O2 Flow Rate FiO2 02/18/17 12:00 98.8 102 16 118/76 (90) 98 02/18/17 08:00 97.5 87 16 115/79 (91) 97 02/18/17 00:00 97.7 86 18 120/70 (87) 95 02/17/17 21:38 96 02/17/17 20:00 97.5 88 18 117/65 (82) 95 02/17/17 16:00 98.1 84 20 118/68 (85) 97 I/O 02/17/17 02/17/17 02/17/17 02/18/17 02/18/17 02/18/17 07:00 15:00 23:00 07:00 15:00 23:00 Intake Total 480 ml 1000 ml 320 ml Output Total 1400 ml 750 ml Balance -920 ml 250 ml 320 ml Intake Oral 480 ml 1000 ml 320 ml Output Urine Total 1400 ml 750 ml # Bowel Movements 1 1 Result Diagram: 02/18/17 0446 02/18/17 0446 Imaging Last Impressions Central Venous Line 02/17/17 0000 Signed Impressions: Service Date/Time: Friday, February 17, 2017 11:12 - CONCLUSION: Uncomplicated line placement as above. Ryder Howell MD Abdomen/Pelvis CT 02/12/17 0000 Signed Impressions: Service Date/Time: January 21:09 - CONCLUSION: 1. No acute finding is identified to explain the abdominal pain. No abscess is present. There is trace simple appearing free fluid in the pelvis. 2. Anasarca. There is minimal subcutaneous air on the right anterior abdominal wall. This may be related to a recent subcutaneous injection. 3. Small bilateral pleural effusions with associated compressive atelectasis in the left lower lobe. There are 2 nodular foci of consolidation identified which could represent septic emboli. Consider chest CT for further evaluation. Timoteo Davis MD Shoulder X-Ray 02/07/17 0000 Signed Impressions: Service Date/Time: Tuesday, February 07, 2017 05:56 - CONCLUSION: Unremarkable single view examination of the left shoulder. Nabil Rai MD Shoulder MRI 02/07/17 0000 Signed Impressions: Service Date/Time: Tuesday, February 07, 2017 17:21 - CONCLUSION: Nondescript edema involving distal clavicle and proximal humerus could be due to marrow contusion, however the appearance is nonspecific in regards to osteomyelitis. There is no abscess. Jaycee Bowser MD Chest X-Ray 02/06/17 1503 Signed Impressions: Service Date/Time: Monday, February 06, 2017 15:27 - CONCLUSION: No acute disease. Joaquin Bangura MD Thoracic Spine MRI 02/06/17 0000 Signed Impressions: Service Date/Time: Monday, February 06, 2017 18:36 - CONCLUSION: Negative thoracic spine MRI without contrast. Timoteo Stapleton MD Lumbar Spine MRI 02/06/17 0000 Signed Impressions: Service Date/Time: Monday, February 06, 2017 18:36 - CONCLUSION: 1. Lumbar spine degenerative changes as above, most conspicuous at L1/L2. 2. Large anterior annular fissure at the L1/L2 disc and reactive appearing marrow edema of the adjacent anterior/inferior corner of the L1 vertebral body. 3. No abscess. No significant foraminal or spinal stenosis. No evidence of osteomyelitis. Timoteo Stapleton MD Cervical Spine MRI 02/06/17 0000 Signed Impressions: Service Date/Time: Monday, February 06, 2017 18:36 - CONCLUSION: Minimal degenerative changes. No stenosis or abscess of the cervical spine. Timoteo Stapleton MD Objective Remarks General: Thin male in no acute distress. Heart: Regular rate and rhythm. No murmur. Lungs: Clear to auscultation bilaterally. No wheezes, rales, or rhonchi. Breathing is nonlabored. Abdomen: Soft, nontender, nondistended. Extremities: Trace left foot/ankle edema. Left knee bandaged. Psych: Alert and oriented. Procedures Left knee irrigation debridement by Dr. Monge on 02/08/2017 Urinary Catheter: No Vascular Central Line Catheter: Yes Assessment to: Continue Line: Central Venous Catheter Side: Right Location: Internal, Jugular A/P Problem List: (1) Septic shock ICD Code: A41.9 - Sepsis, unspecified organism; R65.21 - Severe sepsis with septic shock Status: Acute (2) NNEKA (acute kidney injury) ICD Code: N17.9 - Acute kidney failure, unspecified Status: Acute (3) Encephalopathy acute ICD Code: G93.40 - Encephalopathy, unspecified Status: Acute (4) Acute renal failure ICD Code: N17.9 - Acute kidney failure, unspecified (5) Hypokalemia ICD Code: E87.6 - Hypokalemia (6) Hypomagnesemia ICD Code: E83.42 - Hypomagnesemia (7) Anemia ICD Code: D64.9 - Anemia, unspecified Assessment and Plan 1. Severe sepsis secondary to endocarditis vs septic arthritis (left knee, shoulder): Continue antibiotics. Appreciate infectious disease recommendations. 2. Bacteremia: Multiple blood cultures have been positive for MRSA. Blood cultures from 02/13 and 02/14 are growing gram positive cocci. Femoral central line removed. Tip sent for culture. New central line placed. Changed from vancomycin to Cubicin. 4. Hypomagnesemia: Resolved. 5. IV drug abuse: Counselled. Caution with pain medications. 6. Acute renal failure: Resolved. 7. History of hepatitis C: Limit Tylenol. 8. Severe protein calorie malnutrition: Appreciate dietary recommendations. 9. DVT prophylaxis: Lovenox. 10. Insomnia: Stop Ambien, which is not working per patient. Add lorazepam. Discharge Planning No safe discharge at this time. Patient is homeless and will need long-term IV antibiotics. Alfred Weller MD Feb 18, 2017 15:07
[2017-02-18 16:00] VITALS: BP 148/86; PULSE 91; RESP 16; TEMP 97.6; O2SAT 98
[2017-02-18] MEDS: ENOXAPARIN SODIUM 30 MG/0.3 ML SYRINGE SQ SCH (17:53)
[2017-02-18 20:00] VITALS: BP 149/90; PULSE 110; RESP 18; TEMP 96.8; O2SAT 99
[2017-02-18] MEDS: LORazepam 0.5 MG TAB PO PRN (20:14)
[2017-02-19] VITALS: BP 142/90; PULSE 98; RESP 18; TEMP 97.8; O2SAT 98
[2017-02-19] MEDS: oxyCODONE/ACETAMINOPHEN 5 MG/325 MG TAB PO PRN ×6 (02:01→21:11)
[2017-02-19] MEDS: CHLORHEXIDINE GLUCONATE 2 % 1 PACK (2 CLOTHS) TOP SCH (04:00)
[2017-02-19] MEDS: ENOXAPARIN SODIUM 30 MG/0.3 ML SYRINGE SQ SCH ×2 (04:17→15:27)
[2017-02-19] MEDS: LORazepam 0.5 MG TAB PO PRN (04:17)
[2017-02-19 04:37] LABS: AUTOMATED NEUTROPHIL # 13.5 TH/MM3 (1.8-7.7); BASOPHIL # 0.1 TH/MM3 (0-0.2); BASOPHIL % 0.7 % (0.0-2.0); EOSINOPHIL # 0.1 TH/MM3 (0-0.4); EOSINOPHIL % 0.5 % (0.0-4.0); HEMATOCRIT 31.9 % (39.0-51.0); HEMO FLAGS DIFF FINAL; LYMPH % 13.7 % (9.0-44.0); LYMPHOCYTE # 2.4 TH/MM3 (1.0-4.8); MEAN CELL VOLUME 82.9 FL (80.0-100.0); MEAN CORPUSCULAR HEMOGLOBIN 26.6 PG (27.0-34.0); MEAN CORPUSCULAR HGB CONC 32.1 % (32.0-36.0); MONO % 6.6 % (0.0-8.0); NEUT % 78.5 % (16.0-70.0); PLATELET COUNT 420 TH/MM3 (150-450); RED BLOOD COUNT 3.85 MIL/MM3 (4.50-5.90); WHITE BLOOD COUNT 17.2 TH/MM3 (4.0-11.0)
[2017-02-19 04:59] LABS: POTASSIUM 4.3 MEQ/L (3.5-5.1)
[2017-02-19 08:00] VITALS: BP 153/94; PULSE 108; RESP 15; TEMP 97.3; O2SAT 100
[2017-02-19] MEDS: DOCUSATE SODIUM 50 MG/SENNA 8.6 MG TAB PO SCH ×2 (09:00→21:00)
[2017-02-19] MEDS: FAMOTIDINE 20 MG TAB PO SCH ×2 (09:00→21:00)
[2017-02-19] MEDS: SODIUM CHLORIDE 0.9% FLUSH 10 ML FLUSH IVF SCH (09:00)
[2017-02-19] MEDS: CALCIUM CARBONATE 500 MG CHEWABLE TAB CHEW SCH ×2 (09:00→21:00)
[2017-02-19] MEDS: SODIUM CHLORIDE 0.9% FLUSH 10 ML FLUSH IV FLUSH SCH ×2 (09:00→21:13)
[2017-02-19] MEDS: RIFAMPIN 150 MG CAP PO SCH ×2 (09:53→21:11)
[2017-02-19] MEDS: FOLIC ACID 1 MG TAB PO SCH (09:54)
[2017-02-19] MEDS: THIAMINE HCL 100 MG TAB PO SCH (09:54)
--- NOTE | 2017-02-19 11:12 | HHI.PR ---
Subjective Remarks Follow up bacteremia, insomnia. Patient states that he did not sleep "at all" last night. Pain is unchanged. No chest pain or dyspnea. Objective Vitals Vital Signs Date Time Temp Pulse Resp B/P (MAP) Pulse Ox O2 Delivery O2 Flow Rate FiO2 02/19/17 09:56 Room Air 02/19/17 08:00 97.3 108 15 153/94 (113) 100 02/19/17 00:00 97.8 98 18 142/90 (107) 98 02/18/17 20:15 Room Air 02/18/17 20:00 96.8 110 18 149/90 (109) 99 02/18/17 16:00 97.6 91 16 148/86 (106) 98 02/18/17 12:00 98.8 102 16 118/76 (90) 98 I/O 02/18/17 02/18/17 02/18/17 02/19/17 02/19/17 02/19/17 06:59 14:59 22:59 06:59 14:59 22:59 Intake Total 320 ml 480 ml 250 ml Balance 320 ml 480 ml 250 ml Intake Oral 320 ml 480 ml 250 ml # Voids 3 # Bowel Movements 2 Result Diagram: 02/19/17 0420 02/19/17 0420 Imaging Last Impressions Central Venous Line 02/17/17 0000 Signed Impressions: Service Date/Time: Friday, February 17, 2017 11:12 - CONCLUSION: Uncomplicated line placement as above. Ryder Howell MD Abdomen/Pelvis CT 02/12/17 0000 Signed Impressions: Service Date/Time: January 21:09 - CONCLUSION: 1. No acute finding is identified to explain the abdominal pain. No abscess is present. There is trace simple appearing free fluid in the pelvis. 2. Anasarca. There is minimal subcutaneous air on the right anterior abdominal wall. This may be related to a recent subcutaneous injection. 3. Small bilateral pleural effusions with associated compressive atelectasis in the left lower lobe. There are 2 nodular foci of consolidation identified which could represent septic emboli. Consider chest CT for further evaluation. Timoteo Davis MD Shoulder X-Ray 02/07/17 0000 Signed Impressions: Service Date/Time: Tuesday, February 07, 2017 05:56 - CONCLUSION: Unremarkable single view examination of the left shoulder. Nabil Rai MD Shoulder MRI 02/07/17 0000 Signed Impressions: Service Date/Time: Tuesday, February 07, 2017 17:21 - CONCLUSION: Nondescript edema involving distal clavicle and proximal humerus could be due to marrow contusion, however the appearance is nonspecific in regards to osteomyelitis. There is no abscess. Jaycee Bowser MD Chest X-Ray 02/06/17 1503 Signed Impressions: Service Date/Time: Monday, February 06, 2017 15:27 - CONCLUSION: No acute disease. Joaquin Bangura MD Thoracic Spine MRI 02/06/17 0000 Signed Impressions: Service Date/Time: Thursday, February 06, 2017 18:36 - CONCLUSION: Negative thoracic spine MRI without contrast. Timoteo Stapleton MD Lumbar Spine MRI 02/06/17 0000 Signed Impressions: Service Date/Time: Monday, February 06, 2017 18:36 - CONCLUSION: 1. Lumbar spine degenerative changes as above, most conspicuous at L1/L2. 2. Large anterior annular fissure at the L1/L2 disc and reactive appearing marrow edema of the adjacent anterior/inferior corner of the L1 vertebral body. 3. No abscess. No significant foraminal or spinal stenosis. No evidence of osteomyelitis. Timoteo Stapleton MD Cervical Spine MRI 02/06/17 0000 Signed Impressions: Service Date/Time: Monday, February 06, 2017 18:36 - CONCLUSION: Minimal degenerative changes. No stenosis or abscess of the cervical spine. Timoteo Stapleton MD Objective Remarks General: Thin male in no acute distress. Heart: Regular rate and rhythm. No murmur. Lungs: Clear to auscultation bilaterally. No wheezes, rales, or rhonchi. Breathing is nonlabored. Abdomen: Soft, nontender, nondistended. Extremities: Trace left foot/ankle edema. Left knee bandaged. Psych: Alert and oriented. Procedures Left knee irrigation debridement by Dr. Monge on 02/08/2017 Urinary Catheter: No Vascular Central Line Catheter: Yes Assessment to: Continue Line: Central Venous Catheter Side: Right Location: Internal, Jugular A/P Problem List: (1) Septic shock ICD Code: A41.9 - Sepsis, unspecified organism; R65.21 - Severe sepsis with septic shock Status: Acute (2) NNEKA (acute kidney injury) ICD Code: N17.9 - Acute kidney failure, unspecified Status: Acute (3) Encephalopathy acute ICD Code: G93.40 - Encephalopathy, unspecified Status: Acute (4) Acute renal failure ICD Code: N17.9 - Acute kidney failure, unspecified (5) Hypokalemia ICD Code: E87.6 - Hypokalemia (6) Hypomagnesemia ICD Code: E83.42 - Hypomagnesemia (7) Anemia ICD Code: D64.9 - Anemia, unspecified Assessment and Plan 1. Severe sepsis secondary to endocarditis vs septic arthritis (left knee, shoulder): Continue antibiotics. Appreciate infectious disease recommendations. 2. Bacteremia: Multiple blood cultures have been positive for MRSA. Blood cultures from 02/13 and 02/14 are growing MRSA. Femoral central line removed. Tip sent for culture, which is negative. New central line placed. Changed from vancomycin to Cubicin. 4. Hypomagnesemia: Resolved. 5. IV drug abuse: Counselled. Caution with pain medications. 6. Acute renal failure: Resolved. 7. History of hepatitis C: Limit Tylenol. 8. Severe protein calorie malnutrition: Appreciate dietary recommendations. 9. DVT prophylaxis: Lovenox. 10. Insomnia: Continue lorazepam. Discharge Planning No safe discharge at this time. Patient is homeless and will need long-term IV antibiotics. Alfred Weller MD Feb 19, 2017 11:11
[2017-02-19 12:00] VITALS: BP 127/85; PULSE 98; RESP 19; TEMP 97.8; O2SAT 98
[2017-02-19] MEDS: DAPTOmycin INJ 250 MG in SODIUM CHLORIDE 0.9% INJ 100 ML IV SCH (12:07)
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
[2017-02-19] MEDS: LORazepam 1 MG TAB PO PRN ×2 (15:27→23:11)
[2017-02-19 16:00] VITALS: BP 139/90; PULSE 109; RESP 17; TEMP 98.7; O2SAT 98
[2017-02-19 22:00] VITALS: BP 135/93; PULSE 109; RESP 17; TEMP 97.4; O2SAT 98
[2017-02-19] MEDS: ACETAMINOPHEN 325 MG TAB PO PRN (23:17)
[2017-02-20] VITALS: BP 150/88; PULSE 102; RESP 17; TEMP 97.5; O2SAT 98
[2017-02-20] MEDS: oxyCODONE/ACETAMINOPHEN 5 MG/325 MG TAB PO PRN ×6 (02:01→22:04)
[2017-02-20] MEDS: CHLORHEXIDINE GLUCONATE 2 % 1 PACK (2 CLOTHS) TOP SCH (04:00)
[2017-02-20] MEDS: ENOXAPARIN SODIUM 30 MG/0.3 ML SYRINGE SQ SCH ×2 (04:00→14:08)
[2017-02-20 06:52] LABS: AUTOMATED NEUTROPHIL # 9.1 TH/MM3 (1.8-7.7); BASOPHIL # 0.1 TH/MM3 (0-0.2); BASOPHIL % 0.6 % (0.0-2.0); EOSINOPHIL # 0.1 TH/MM3 (0-0.4); EOSINOPHIL % 0.8 % (0.0-4.0); HEMATOCRIT 32.6 % (39.0-51.0); HEMO FLAGS DIFF FINAL; LYMPH % 21.5 % (9.0-44.0); LYMPHOCYTE # 2.8 TH/MM3 (1.0-4.8); MEAN CELL VOLUME 82.6 FL (80.0-100.0); MEAN CORPUSCULAR HEMOGLOBIN 27.3 PG (27.0-34.0); MONO % 7.1 % (0.0-8.0); PLATELET COUNT 436 TH/MM3 (150-450); RED BLOOD COUNT 3.95 MIL/MM3 (4.50-5.90); RED CELL DISTRIBUTION WIDTH 16.1 % (11.6-17.2)
[2017-02-20] MEDS: LORazepam 1 MG TAB PO PRN ×2 (07:37→15:53)
[2017-02-20 08:00] VITALS: BP 116/78; PULSE 96; RESP 17; TEMP 96.7; O2SAT 98
[2017-02-20] MEDS: FAMOTIDINE 20 MG TAB PO SCH ×2 (08:20→21:00)
[2017-02-20] MEDS: FOLIC ACID 1 MG TAB PO SCH (08:20)
[2017-02-20] MEDS: RIFAMPIN 150 MG CAP PO SCH ×2 (08:20→22:02)
[2017-02-20] MEDS: DOCUSATE SODIUM 50 MG/SENNA 8.6 MG TAB PO SCH ×2 (08:20→21:00)
[2017-02-20] MEDS: THIAMINE HCL 100 MG TAB PO SCH (08:20)
[2017-02-20] MEDS: SODIUM CHLORIDE 0.9% FLUSH 10 ML FLUSH IV FLUSH SCH ×2 (08:21→22:03)
[2017-02-20] MEDS: CALCIUM CARBONATE 500 MG CHEWABLE TAB CHEW SCH ×2 (08:21→21:00)
[2017-02-20] MEDS: SODIUM CHLORIDE 0.9% FLUSH 10 ML FLUSH IVF SCH (08:21)
--- NOTE | 2017-02-20 10:41 | HHI.PR ---
Subjective Remarks Follow up bacteremia, insomnia. Patient seen and examined, father at bedside. Does complain of continued insomnia. Pain is relatively controlled on current pain regimen but continued complaints of restless leg syndrome at night. Denies any new fever, chills, cough, headache, shortness of breath, ab pain, n/v/d or dysuria. Spoke to patient and father at length regarding discharge plans. Patient states he would pursue going home and come in for treatment. Objective Vitals Vital Signs Date Time Temp Pulse Resp B/P (MAP) Pulse Ox O2 Delivery O2 Flow Rate FiO2 02/20/17 08:00 96.7 96 17 116/78 (91) 98 02/20/17 00:00 97.5 102 17 150/88 (108) 98 02/19/17 22:00 97.4 109 17 135/93 (107) 98 02/19/17 21:15 Room Air 02/19/17 16:00 98.7 109 17 139/90 (106) 98 02/19/17 12:00 97.8 98 19 127/85 (99) 98 I/O 02/19/17 02/19/17 02/19/17 02/20/17 02/20/17 02/20/17 07:00 15:00 23:00 07:00 15:00 23:00 Intake Total 250 ml 1385 ml 480 ml Output Total 3250 ml 600 ml Balance 250 ml -1865 ml -120 ml Intake Oral 250 ml 1385 ml 480 ml Output Urine Total 3250 ml 600 ml # Voids 3 # Bowel Movements 1 Result Diagram: 02/20/17 0605 02/19/17 0420 Imaging Last Impressions Central Venous Line 02/17/17 0000 Signed Impressions: Service Date/Time: Friday, February 17, 2017 11:12 - CONCLUSION: Uncomplicated line placement as above. Ryder Howell MD Abdomen/Pelvis CT 02/12/17 0000 Signed Impressions: Service Date/Time: January 21:09 - CONCLUSION: 1. No acute finding is identified to explain the abdominal pain. No abscess is present. There is trace simple appearing free fluid in the pelvis. 2. Anasarca. There is minimal subcutaneous air on the right anterior abdominal wall. This may be related to a recent subcutaneous injection. 3. Small bilateral pleural effusions with associated compressive atelectasis in the left lower lobe. There are 2 nodular foci of consolidation identified which could represent septic emboli. Consider chest CT for further evaluation. Timoteo Davis MD Shoulder X-Ray 02/07/17 0000 Signed Impressions: Service Date/Time: Tuesday, February 07, 2017 05:56 - CONCLUSION: Unremarkable single view examination of the left shoulder. Nabil Rai MD Shoulder MRI 02/07/17 0000 Signed Impressions: Service Date/Time: Tuesday, February 07, 2017 17:21 - CONCLUSION: Nondescript edema involving distal clavicle and proximal humerus could be due to marrow contusion, however the appearance is nonspecific in regards to osteomyelitis. There is no abscess. Jaycee Bowser MD Chest X-Ray 02/06/17 1503 Signed Impressions: Service Date/Time: Monday, February 06, 2017 15:27 - CONCLUSION: No acute disease. Joaquin Bangura MD Thoracic Spine MRI 02/06/17 0000 Signed Impressions: Service Date/Time: Monday, February 06, 2017 18:36 - CONCLUSION: Negative thoracic spine MRI without contrast. Timoteo Stapleton MD Lumbar Spine MRI 02/06/17 0000 Signed Impressions: Service Date/Time: Monday, February 06, 2017 18:36 - CONCLUSION: 1. Lumbar spine degenerative changes as above, most conspicuous at L1/L2. 2. Large anterior annular fissure at the L1/L2 disc and reactive appearing marrow edema of the adjacent anterior/inferior corner of the L1 vertebral body. 3. No abscess. No significant foraminal or spinal stenosis. No evidence of osteomyelitis. Timoteo Stapleton MD Cervical Spine MRI 02/06/17 0000 Signed Impressions: Service Date/Time: Monday, February 06, 2017 18:36 - CONCLUSION: Minimal degenerative changes. No stenosis or abscess of the cervical spine. Timoteo Stapleton MD Objective Remarks GENERAL: Well-nourished, well-developed male patient sitting up in bed awake, but drowsy. Alert and oriented x 3. SKIN: Warm and dry. No rash. Multiple tattoos noted. HEAD: Normocephalic. EYES: No scleral icterus. No injection or drainage. NECK: Supple, trachea midline. No JVD. Right IJ central line placed. CARDIOVASCULAR: Regular rate and rhythm/ No murmurs, gallops, or rubs appreciated. RESPIRATORY: Breath sounds equal bilaterally. No accessory muscle use. GASTROINTESTINAL: Abdomen soft, non-tender, nondistended. MUSCULOSKELETAL: No cyanosis, or edema. BACK: Nontender without obvious deformity. No CVA tenderness. Procedures Left knee irrigation debridement by Dr. Monge on 02/08/2017 Line: Central Venous Catheter Side: Right Location: Internal, Jugular A/P Problem List: (1) Septic shock ICD Code: A41.9 - Sepsis, unspecified organism; R65.21 - Severe sepsis with septic shock Status: Acute (2) NNEKA (acute kidney injury) ICD Code: N17.9 - Acute kidney failure, unspecified Status: Acute (3) Encephalopathy acute ICD Code: G93.40 - Encephalopathy, unspecified Status: Acute (4) Acute renal failure ICD Code: N17.9 - Acute kidney failure, unspecified (5) Hypokalemia ICD Code: E87.6 - Hypokalemia (6) Hypomagnesemia ICD Code: E83.42 - Hypomagnesemia (7) Anemia ICD Code: D64.9 - Anemia, unspecified Assessment and Plan 1. Severe sepsis secondary to endocarditis vs septic arthritis (left knee, shoulder): Continue antibiotics. Afebrile. WBC trending down. Appreciate infectious disease recommendations. 2. Bacteremia: Multiple blood cultures have been positive for MRSA. Blood cultures from 02/13 and 02/14 are growing MRSA. BC from 02/18 and 02/19 NGTD. Femoral central line removed. Tip sent for culture, which is negative. New central line placed Right IJ. Changed from vancomycin to Cubicin. 3. Hypomagnesemia: Resolved. 4. IV drug abuse: Counselled. Caution with pain medications. 5. Acute renal failure: Resolved. 6. History of hepatitis C: Limit Tylenol. 7. Severe protein calorie malnutrition: Appreciate dietary recommendations. 8. DVT prophylaxis: Lovenox. 9. Insomnia: Continue lorazepam. Discharge Planning CM assisting. Patient desires to go home with a PICC line and come in for treatment. Discussed today with patient regarding home situation. Patient believes he will be capable of coming in daily for treatment. Zaina Sutherland Feb 20, 2017 10:41
[2017-02-20] MEDS: ACETAMINOPHEN 325 MG TAB PO PRN (11:55)
[2017-02-20 12:00] VITALS: BP 116/78; PULSE 96; RESP 17; TEMP 97.7; O2SAT 98
[2017-02-20] MEDS: DAPTOmycin INJ 250 MG in SODIUM CHLORIDE 0.9% INJ 100 ML IV SCH (12:00)
[2017-02-20 16:00] VITALS: BP 110/63; PULSE 90; RESP 17; TEMP 96.4; O2SAT 98
[2017-02-20] MEDS: NICOTINE 14 MG/24 HR PATCH T-DERMAL SCH (18:06)
[2017-02-20 20:00] VITALS: BP 106/56; PULSE 102; RESP 17; TEMP 97.4; O2SAT 97
[2017-02-21] VITALS: BP 98/68; PULSE 110; RESP 17; TEMP 95.8; O2SAT 97
[2017-02-21] MEDS: LORazepam 1 MG TAB PO PRN ×3 (00:31→21:44)
[2017-02-21] MEDS: CHLORHEXIDINE GLUCONATE 2 % 1 PACK (2 CLOTHS) TOP SCH (00:36)
[2017-02-21] MEDS: ENOXAPARIN SODIUM 30 MG/0.3 ML SYRINGE SQ SCH ×2 (04:00→16:56)
[2017-02-21] MEDS: oxyCODONE/ACETAMINOPHEN 5 MG/325 MG TAB PO PRN ×4 (05:14→21:45)
[2017-02-21 05:48] LABS: AUTOMATED NEUTROPHIL # 7.6 TH/MM3 (1.8-7.7); BASOPHIL # 0.1 TH/MM3 (0-0.2); BASOPHIL % 0.8 % (0.0-2.0); EOSINOPHIL # 0.1 TH/MM3 (0-0.4); EOSINOPHIL % 0.8 % (0.0-4.0); HEMATOCRIT 28.4 % (39.0-51.0); HEMO FLAGS DIFF FINAL; LYMPH % 17.6 % (9.0-44.0); LYMPHOCYTE # 1.9 TH/MM3 (1.0-4.8); MEAN CORPUSCULAR HEMOGLOBIN 27.8 PG (27.0-34.0); MEAN CORPUSCULAR HGB CONC 33.5 % (32.0-36.0); MONO % 9.9 % (0.0-8.0); NEUT % 70.9 % (16.0-70.0); PLATELET COUNT 383 TH/MM3 (150-450); RED BLOOD COUNT 3.42 MIL/MM3 (4.50-5.90); RED CELL DISTRIBUTION WIDTH 16.3 % (11.6-17.2); WHITE BLOOD COUNT 10.7 TH/MM3 (4.0-11.0)
[2017-02-21 08:00] VITALS: BP 111/77; PULSE 110; RESP 19; TEMP 97.6; O2SAT 99
[2017-02-21] MEDS: DOCUSATE SODIUM 50 MG/SENNA 8.6 MG TAB PO SCH ×2 (09:00→21:00)
[2017-02-21] MEDS: REMOVE OLD PATCH T-DERMAL SCH (09:00)
--- NOTE | 2017-02-21 09:53 | HHI.PR ---
Subjective Remarks Follow up bacteremia, insomnia. Patient seen and examined today, much more alert and awake. He states he slept really well last evening. Pain is well controlled. Tolerating PO intake. Denies any new acute events overnight. Eager to get home, motivated to receive outpatient antibiotic treatment and states he is motivated to stay clean and has a stable environment and support. Denies any new fever, chills, cough, headache, shortness of breath, ab pain, n/v/d or dysuria. Objective Vitals Vital Signs Date Time Temp Pulse Resp B/P (MAP) Pulse Ox O2 Delivery O2 Flow Rate FiO2 02/21/17 08:00 97.6 110 19 111/77 (88) 99 02/21/17 00:00 95.8 110 17 98/68 (78) 97 02/20/17 20:00 97.4 102 17 106/56 (73) 97 02/20/17 16:00 96.4 90 17 110/63 (79) 98 02/20/17 12:00 97.7 96 17 116/78 (91) 98 I/O 02/20/17 02/20/17 02/20/17 02/21/17 02/21/17 02/21/17 07:00 15:00 23:00 07:00 15:00 23:00 Intake Total 480 ml 840 ml 400 ml Output Total 600 ml 950 ml 400 ml Balance -120 ml -110 ml 0 ml Intake Oral 480 ml 840 ml 400 ml Output Urine Total 600 ml 950 ml 400 ml # Voids 5 # Bowel Movements 2 Result Diagram: 02/21/17 0516 02/19/17 0420 Imaging Last Impressions Central Venous Line 02/17/17 0000 Signed Impressions: Service Date/Time: Friday, February 17, 2017 11:12 - CONCLUSION: Uncomplicated line placement as above. Ryder Howell MD Abdomen/Pelvis CT 02/12/17 0000 Signed Impressions: Service Date/Time: January 21:09 - CONCLUSION: 1. No acute finding is identified to explain the abdominal pain. No abscess is present. There is trace simple appearing free fluid in the pelvis. 2. Anasarca. There is minimal subcutaneous air on the right anterior abdominal wall. This may be related to a recent subcutaneous injection. 3. Small bilateral pleural effusions with associated compressive atelectasis in the left lower lobe. There are 2 nodular foci of consolidation identified which could represent septic emboli. Consider chest CT for further evaluation. Timoteo Davis MD Shoulder X-Ray 02/07/17 0000 Signed Impressions: Service Date/Time: Tuesday, February 07, 2017 05:56 - CONCLUSION: Unremarkable single view examination of the left shoulder. Nabil Rai MD Shoulder MRI 02/07/17 0000 Signed Impressions: Service Date/Time: Tuesday, February 07, 2017 17:21 - CONCLUSION: Nondescript edema involving distal clavicle and proximal humerus could be due to marrow contusion, however the appearance is nonspecific in regards to osteomyelitis. There is no abscess. Jaycee Bowser MD Chest X-Ray 02/06/17 1503 Signed Impressions: Service Date/Time: Monday, February 06, 2017 15:27 - CONCLUSION: No acute disease. Joaquin Bangura MD Thoracic Spine MRI 02/06/17 0000 Signed Impressions: Service Date/Time: Monday, February 06, 2017 18:36 - CONCLUSION: Negative thoracic spine MRI without contrast. Timoteo Stapleton MD Lumbar Spine MRI 02/06/17 0000 Signed Impressions: Service Date/Time: Monday, February 06, 2017 18:36 - CONCLUSION: 1. Lumbar spine degenerative changes as above, most conspicuous at L1/L2. 2. Large anterior annular fissure at the L1/L2 disc and reactive appearing marrow edema of the adjacent anterior/inferior corner of the L1 vertebral body. 3. No abscess. No significant foraminal or spinal stenosis. No evidence of osteomyelitis. Timoteo Stapleton MD Cervical Spine MRI 02/06/17 0000 Signed Impressions: Service Date/Time: Monday, February 06, 2017 18:36 - CONCLUSION: Minimal degenerative changes. No stenosis or abscess of the cervical spine. Timoteo Stapleton MD Objective Remarks GENERAL: Well-nourished, well-developed male patient sitting up in bed awake. Alert and oriented x 3. SKIN: Warm and dry. No rash. Multiple tattoos noted. HEAD: Normocephalic. EYES: No scleral icterus. No injection or drainage. NECK: Supple, trachea midline. No JVD. Right IJ central line placed. CARDIOVASCULAR: Regular rate and rhythm/ No murmurs, gallops, or rubs appreciated. RESPIRATORY: Breath sounds equal bilaterally. No accessory muscle use. GASTROINTESTINAL: Abdomen soft, non-tender, nondistended. MUSCULOSKELETAL: No cyanosis, or edema. BACK: Nontender without obvious deformity. No CVA tenderness. Procedures Left knee irrigation debridement by Dr. Monge on 02/08/2017 Line: Central Venous Catheter Side: Right Location: Internal, Jugular A/P Problem List: (1) Septic shock ICD Code: A41.9 - Sepsis, unspecified organism; R65.21 - Severe sepsis with septic shock Status: Acute (2) NNEKA (acute kidney injury) ICD Code: N17.9 - Acute kidney failure, unspecified Status: Acute (3) Encephalopathy acute ICD Code: G93.40 - Encephalopathy, unspecified Status: Acute (4) Acute renal failure ICD Code: N17.9 - Acute kidney failure, unspecified (5) Hypokalemia ICD Code: E87.6 - Hypokalemia (6) Hypomagnesemia ICD Code: E83.42 - Hypomagnesemia (7) Anemia ICD Code: D64.9 - Anemia, unspecified Assessment and Plan 1. Severe sepsis secondary to endocarditis vs septic arthritis (left knee, shoulder): Continue antibiotics. Afebrile. WBC trending down. Appreciate infectious disease recommendations. 2. Bacteremia: Multiple blood cultures have been positive for MRSA. Blood cultures from 02/13 and 02/14 are growing MRSA. BC from 02/18 and 02/19 NGTD. Femoral central line removed. Tip sent for culture, which is negative. New central line placed Right IJ. Changed from vancomycin to Cubicin. 3. Hypomagnesemia: Resolved. 4. IV drug abuse: Counselled. Caution with pain medications. 5. Acute renal failure: Resolved. 6. History of hepatitis C: Limit Tylenol. 7. Severe protein calorie malnutrition: Appreciate dietary recommendations. 8. DVT prophylaxis: Lovenox. 9. Insomnia: Continue lorazepam. Discharge Planning CM assisting. Patient desires to go home with a PICC line and come in for treatment. Discussed today with patient regarding home situation. Patient believes he will be capable of coming in daily for treatment. Motivated to stay drug free and keeping PICC clean. Spoke with CM on possible plan. Spoke to Dr. Alamo and plan for discharge home on Thursday and will receive first dose of antibiotic on Thursday in clinic. Zaina Sutherland Feb 21, 2017 09:53
[2017-02-21] MEDS: THIAMINE HCL 100 MG TAB PO SCH (10:17)
[2017-02-21] MEDS: CALCIUM CARBONATE 500 MG CHEWABLE TAB CHEW SCH ×2 (10:17→21:00)
[2017-02-21] MEDS: RIFAMPIN 150 MG CAP PO SCH ×2 (10:18→21:44)
[2017-02-21] MEDS: FOLIC ACID 1 MG TAB PO SCH (10:18)
[2017-02-21] MEDS: FAMOTIDINE 20 MG TAB PO SCH ×2 (10:18→21:00)
[2017-02-21] MEDS: NICOTINE 14 MG/24 HR PATCH T-DERMAL SCH (10:19)
[2017-02-21 12:00] VITALS: BP 117/59; PULSE 110; RESP 17; TEMP 97.8; O2SAT 99
[2017-02-21] MEDS: DAPTOmycin INJ 250 MG in SODIUM CHLORIDE 0.9% INJ 100 ML IV SCH (12:31)
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
[2017-02-21 16:00] VITALS: BP 102/66; PULSE 108; RESP 17; TEMP 97.5; O2SAT 98
--- NOTE | 2017-02-21 16:21 | RADRPT ---
EXAM DATE/TIME: 02/21/2017 15:57 [facility] COMPARISON: CHEST SINGLE AP, February 06, 2017, 15:27. INDICATIONS : Evalaute for right sided picc line placement. MEDICAL HISTORY : None. SURGICAL HISTORY : Chest tube. Tracheotomy. ENCOUNTER: Subsequent ACUITY: 1 day PAIN SCORE: Non-responsive. LOCATION: chest FINDINGS: PICC line and central line in good position. Negative for pneumothorax. The heart and pulmonary vasc ularity are normal. The portion of the bony skeleton visualized is unremarkable. CONCLUSION: PICC line in good position. Jong Contreras MD FACR on February 21, 2017 at 16:18 Board Certified Radiologist. This report was verified electronically.
[2017-02-21] MEDS: SODIUM CHLORIDE 0.9% FLUSH 10 ML FLUSH IV FLUSH SCH ×2 (17:00→21:45)
[2017-02-21] MEDS: SODIUM CHLORIDE 0.9% FLUSH 10 ML FLUSH IVF SCH (17:00)
[2017-02-21 20:00] VITALS: BP 120/74; PULSE 116; RESP 18; TEMP 97.7; O2SAT 98
[2017-02-22] VITALS: BP 117/69; PULSE 109; RESP 18; TEMP 97.7; O2SAT 98
[2017-02-22] MEDS: ENOXAPARIN SODIUM 30 MG/0.3 ML SYRINGE SQ SCH ×2 (02:45→17:04)
[2017-02-22] MEDS: CHLORHEXIDINE GLUCONATE 2 % 1 PACK (2 CLOTHS) TOP SCH (02:46)
[2017-02-22] MEDS: oxyCODONE/ACETAMINOPHEN 5 MG/325 MG TAB PO PRN ×5 (05:46→21:58)
[2017-02-22] MEDS: LORazepam 1 MG TAB PO PRN ×2 (06:02→17:03)
[2017-02-22 06:59] LABS: INDIRECT BILIRUBIN 0.2 MG/DL (0.0-0.8); TOTAL BILIRUBIN ADULT 0.3 MG/DL (0.2-1.0)
[2017-02-22 08:00] VITALS: BP 106/65; PULSE 94; RESP 17; TEMP 97.6; O2SAT 98
[2017-02-22] MEDS: DOCUSATE SODIUM 50 MG/SENNA 8.6 MG TAB PO SCH ×2 (09:00→21:00)
[2017-02-22] MEDS: SODIUM CHLORIDE 0.9% FLUSH 10 ML FLUSH IVF SCH (09:00)
[2017-02-22] MEDS: SODIUM CHLORIDE 0.9% FLUSH 10 ML FLUSH IV FLUSH SCH ×2 (09:00→21:00)
[2017-02-22] MEDS: REMOVE OLD PATCH T-DERMAL SCH (09:00)
[2017-02-22] MEDS: NICOTINE 14 MG/24 HR PATCH T-DERMAL SCH (10:14)
[2017-02-22] MEDS: CALCIUM CARBONATE 500 MG CHEWABLE TAB CHEW SCH ×2 (10:14→21:00)
[2017-02-22] MEDS: RIFAMPIN 150 MG CAP PO SCH ×2 (10:14→21:58)
[2017-02-22] MEDS: FOLIC ACID 1 MG TAB PO SCH (10:15)
[2017-02-22] MEDS: THIAMINE HCL 100 MG TAB PO SCH (10:15)
[2017-02-22] MEDS: FAMOTIDINE 20 MG TAB PO SCH ×2 (10:15→21:00)
[2017-02-22 12:00] VITALS: BP 107/78; PULSE 104; RESP 16; TEMP 96; O2SAT 99
[2017-02-22] MEDS: DAPTOmycin INJ 250 MG in SODIUM CHLORIDE 0.9% INJ 100 ML IV SCH (13:54)
--- NOTE | 2017-02-22 15:10 | HHI.PR ---
Subjective Remarks Follow up bacteremia, insomnia. Patient seen and examined today. Father and RN at bedside. Patient sitting up in bed comfortably. Feeling well today, pain well controlled. Eager to get home. Spoke at length about treatment and discharge plan. PICC in place. DC tomorrow to infusion clinic for first dose of IV antibiotic. Denies any recent fever, chills, cough, ab pain, n/v/d/ or dysuria. Objective Vitals Vital Signs Date Time Temp Pulse Resp B/P (MAP) Pulse Ox O2 Delivery O2 Flow Rate FiO2 02/22/17 12:00 96.0 104 16 107/78 (88) 99 02/22/17 08:00 97.6 94 17 106/65 (79) 98 02/22/17 00:00 97.7 109 18 117/69 (85) 98 02/21/17 20:00 97.7 116 18 120/74 (89) 98 02/21/17 16:00 97.5 108 17 102/66 (78) 98 I/O 02/21/17 02/21/17 02/21/17 02/22/17 02/22/17 02/22/17 07:00 15:00 23:00 07:00 15:00 23:00 Intake Total 400 ml 975 ml 480 ml Output Total 400 ml 975 ml 800 ml Balance 0 ml 0 ml -320 ml Intake Oral 400 ml 975 ml 480 ml Output Urine Total 400 ml 975 ml 800 ml # Bowel Movements 1 0 Result Diagram: 02/21/17 0516 02/19/17 0420 Imaging Last Impressions Chest X-Ray 02/21/17 0000 Signed Impressions: Service Date/Time: Tuesday, February 21, 2017 15:57 - CONCLUSION: PICC line in good position. Jong Contreras MD FACR Central Venous Line 02/17/17 0000 Signed Impressions: Service Date/Time: Friday, February 17, 2017 11:12 - CONCLUSION: Uncomplicated line placement as above. Ryder Howell MD Abdomen/Pelvis CT 02/12/17 0000 Signed Impressions: Service Date/Time: January 21:09 - CONCLUSION: 1. No acute finding is identified to explain the abdominal pain. No abscess is present. There is trace simple appearing free fluid in the pelvis. 2. Anasarca. There is minimal subcutaneous air on the right anterior abdominal wall. This may be related to a recent subcutaneous injection. 3. Small bilateral pleural effusions with associated compressive atelectasis in the left lower lobe. There are 2 nodular foci of consolidation identified which could represent septic emboli. Consider chest CT for further evaluation. Timoteo Davis MD Shoulder X-Ray 02/07/17 Signed Impressions: Service Date/Time: Tuesday, February 07, 2017 05:56 - CONCLUSION: Unremarkable single view examination of the left shoulder. Nabil Rai MD Shoulder MRI 02/07/17 Signed Impressions: Service Date/Time: Tuesday, February 07, 2017 17:21 - CONCLUSION: Nondescript edema involving distal clavicle and proximal humerus could be due to marrow contusion, however the appearance is nonspecific in regards to osteomyelitis. There is no abscess. Jaycee Bowser MD Thoracic Spine MRI 02/06/17 Signed Impressions: Service Date/Time: Monday, February 06, 2017 18:36 - CONCLUSION: Negative thoracic spine MRI without contrast. Timoteo Stapleton MD Lumbar Spine MRI 02/06/17 Signed Impressions: Service Date/Time: Monday, February 06, 2017 18:36 - CONCLUSION: 1. Lumbar spine degenerative changes as above, most conspicuous at L1/L2. 2. Large anterior annular fissure at the L1/L2 disc and reactive appearing marrow edema of the adjacent anterior/inferior corner of the L1 vertebral body. 3. No abscess. No significant foraminal or spinal stenosis. No evidence of osteomyelitis. Timoteo Stapleton MD Cervical Spine MRI 02/06/17 Signed Impressions: Service Date/Time: Monday, February 06, 2017 18:36 - CONCLUSION: Minimal degenerative changes. No stenosis or abscess of the cervical spine. Timoteo Stapleton MD Objective Remarks GENERAL: Well-nourished, well-developed male patient sitting up in bed awake. Alert and oriented x 3. SKIN: Warm and dry. No rash. Multiple tattoos noted. Right upper arm PICC line noted. HEAD: Normocephalic. EYES: No scleral icterus. No injection or drainage. NECK: Supple, trachea midline. No JVD. CARDIOVASCULAR: Regular rate and rhythm/ No murmurs, gallops, or rubs appreciated. RESPIRATORY: Breath sounds equal bilaterally. No accessory muscle use. GASTROINTESTINAL: Abdomen soft, non-tender, nondistended. MUSCULOSKELETAL: No cyanosis, or edema. BACK: Nontender without obvious deformity. No CVA tenderness. Procedures Left knee irrigation debridement by Dr. Monge on 02/08/2017 A/P Problem List: (1) Septic shock ICD Code: A41.9 - Sepsis, unspecified organism; R65.21 - Severe sepsis with septic shock Status: Acute (2) NNEKA (acute kidney injury) ICD Code: N17.9 - Acute kidney failure, unspecified Status: Acute (3) Encephalopathy acute ICD Code: G93.40 - Encephalopathy, unspecified Status: Acute (4) Acute renal failure ICD Code: N17.9 - Acute kidney failure, unspecified (5) Hypokalemia ICD Code: E87.6 - Hypokalemia (6) Hypomagnesemia ICD Code: E83.42 - Hypomagnesemia (7) Anemia ICD Code: D64.9 - Anemia, unspecified Assessment and Plan 1. Severe sepsis secondary to endocarditis vs septic arthritis (left knee, shoulder): Continue antibiotics. Afebrile. WBC trending down. Appreciate infectious disease recommendations. 2. Bacteremia: Multiple blood cultures have been positive for MRSA. Blood cultures from 02/13 and 02/14 are growing MRSA. BC from 02/18 and 02/19 NGTD. Femoral central line removed. Tip sent for culture, which is negative. Right PICC line in place. Changed from vancomycin to Cubicin. Continue Rifampin. Follow LFTs. Per ID, patient is to get IV abx until March 28. 3. Hypomagnesemia: Resolved. 4. IV drug abuse: Counselled. Caution with pain medications. States he follows up with the methadone clinic when discharged. 5. Acute renal failure: Resolved. 6. History of hepatitis C: Limit Tylenol. 7. Severe protein calorie malnutrition: Appreciate dietary recommendations. 8. DVT prophylaxis: Lovenox. 9. Insomnia: Continue lorazepam. Discharge Planning CM assisting. PICC placed for snf abx, end date Mar.28. Patient believes he will be capable of coming in daily for treatment. Motivated to stay drug free and keeping PICC clean. Dr. Alamo following and plan for discharge home on Thursday and will receive first dose of antibiotic on [place] in clinic. Zaina Sutherland Feb 22, 2017 15:10
--- NOTE | 2017-02-22 15:17 | HHI.FF ---
Infusion Therapy Location of Infusion Therapy: Ambulatory Infusion Therapy Order Patient Information Patient Weight 46.9 kg Diagnosis: Diagnosis MRSA TV endocarditis Coded Allergies: No Known Allergies (Verified , 02/06/17) Administer Medication Telavancin 500 mg IV daily Stop Treatment: Mar 28, 2017 Additional Information Venous access: PICC Line Additional Instructions [x] Peripheral flush and dressing changes per protocol [x] Implanted port and central commercial lines sales executive: * Implanted port: 10 ml Normal Saline followed by 5 ml Heparin 100 units/ml Heparin flush after each use and monthly to maintain. [] May leave port accessed during therapy. [] May leave peripheral site accessed for duration of therapy. [x] If patient has SOB or respiratory distress, check oxygen saturation. If less than 90% or clinical signs of respiratory distress, administer oxygen at 2 L/min. via nasal cannula and notify physician. [x] Anaphylaxis/Reaction orders: * Stop infusion. * Keep IV line open with saline flush. * Notify physician. * Monitor vital signs every 15 minutes until symptoms resolve. * Check Oxygen saturation; Oxygen at 2 L/min. via nasal cannula if less than 90% or clinical signs of respiratory distress. * Administer diphenhydramine (Benadryl) 25 mg IV STAT, (unless patient has received as pre-med). May repeat once, if necessary. * Solu-Cortef 250 mg IVP over 30-60 seconds, use 100 mg vials for each dissolution. * Epinephrine (1mg/1 ml) 0.3 mg subcutaneously or IVP now with any signs of respiratory distress. * Check with physician for new additional pre-med orders if patient is re- challenged or re-treated. [x] May remove PICC line when treatment complete, after confirming with Physician. [x] If the patient is admitted to the hospital, the ED, or transferred via [facility] , complete transfer form including medication reconciliation order sheet. Laboratory Tests Weekly Labs: CBC w/diff, Creatinine, LFT's (Hepatic function test) (Labs every Thursday - copy to me) Additional Information Please wrap the PICC with self stick dressing covering, include all the tubing to monitor for tampering Radha Piercea G MD Feb 22, 2017 15:17
[2017-02-22 16:00] VITALS: BP 123/91; PULSE 109; RESP 18; TEMP 97.7; O2SAT 97
[2017-02-22 20:00] VITALS: BP 131/80; PULSE 110; RESP 18; TEMP 96.4; O2SAT 100
[2017-02-23] VITALS: BP 115/55; PULSE 110; RESP 18; TEMP 99.7; O2SAT 97
[2017-02-23] MEDS: LORazepam 1 MG TAB PO PRN (02:26)
[2017-02-23] MEDS: oxyCODONE/ACETAMINOPHEN 5 MG/325 MG TAB PO PRN ×2 (02:27→07:21)
[2017-02-23] MEDS: ENOXAPARIN SODIUM 30 MG/0.3 ML SYRINGE SQ SCH (03:42)
[2017-02-23] MEDS: CHLORHEXIDINE GLUCONATE 2 % 1 PACK (2 CLOTHS) TOP SCH (04:00)
[2017-02-23 08:00] VITALS: BP 110/71; PULSE 99; RESP 24; TEMP 98.2; O2SAT 97
--- NOTE | 2017-02-23 08:26 | HHI.DS ---
Discharge Summary Admission Date Feb 06, 2017 at 18:46 Discharge Date: Feb 23, 2017 Admitting Diagnosis Severe Sepsis, Sepstic Shock, Multiple organ failure. (1) Septic shock ICD Code: A41.9 - Sepsis, unspecified organism; R65.21 - Severe sepsis with septic shock Status: Acute (2) NNEKA (acute kidney injury) ICD Code: N17.9 - Acute kidney failure, unspecified Status: Acute (3) Encephalopathy acute ICD Code: G93.40 - Encephalopathy, unspecified Status: Acute (4) Acute renal failure ICD Code: N17.9 - Acute kidney failure, unspecified (5) Hypokalemia ICD Code: E87.6 - Hypokalemia (6) Hypomagnesemia ICD Code: E83.42 - Hypomagnesemia (7) Anemia ICD Code: D64.9 - Anemia, unspecified Procedures Left knee irrigation debridement by Dr. Monge on 02/08/2017 Brief History - From Admission 36 y/o cachectic homeless man with long-standing history of drug-seeking in [facility] ED presents hypotensive in 60s, largely obtunded and severely dehydrated with NNEKA. After several liters of fluid he is conversant and complains of back pain. CXR, U/A benign. Because of back pain, fever and leukocytosis he underwent MRI of back ion ED which did not show any abscess or acute injury. Prealbumin 4 and albumin 2.3, indicative of severe protein calorie malnutrition. He acknowledges chronic heroin use. CBC/BMP: 02/21/17 0516 02/19/17 0420 Significant Findings Laboratory Tests Test 02/21/17 05:16 02/22/17 05:43 Red Blood Count 3.42 MIL/MM3 (4.50-5.90) Hemoglobin 9.5 GM/DL (13.0-17.0) Hematocrit 28.4 % (39.0-51.0) Neutrophils (%) (Auto) 70.9 % (16.0-70.0) Monocytes (%) (Auto) 9.9 % (0.0-8.0) Monocytes # (Auto) 1.1 TH/MM3 (0-0.9) Alkaline Phosphatase 222 U/L (45-117) Albumin 2.5 GM/DL (3.4-5.0) Imaging Last Impressions Chest X-Ray 02/21/17 0000 Signed Impressions: Service Date/Time: Tuesday, February 21, 2017 15:57 - CONCLUSION: PICC line in good position. Jong Contreras MD FACR Central Venous Line 02/17/17 0000 Signed Impressions: Service Date/Time: Friday, February 17, 2017 11:12 - CONCLUSION: Uncomplicated line placement as above. Ryder Howell MD Abdomen/Pelvis CT 02/12/17 0000 Signed Impressions: Service Date/Time: January 21:09 - CONCLUSION: 1. No acute finding is identified to explain the abdominal pain. No abscess is present. There is trace simple appearing free fluid in the pelvis. 2. Anasarca. There is minimal subcutaneous air on the right anterior abdominal wall. This may be related to a recent subcutaneous injection. 3. Small bilateral pleural effusions with associated compressive atelectasis in the left lower lobe. There are 2 nodular foci of consolidation identified which could represent septic emboli. Consider chest CT for further evaluation. Timoteo Davis MD Shoulder X-Ray 02/07/17 0000 Signed Impressions: Service Date/Time: Tuesday, February 07, 2017 05:56 - CONCLUSION: Unremarkable single view examination of the left shoulder. Nabil Rai MD Shoulder MRI 02/07/17 0000 Signed Impressions: Service Date/Time: Tuesday, February 07, 2017 17:21 - CONCLUSION: Nondescript edema involving distal clavicle and proximal humerus could be due to marrow contusion, however the appearance is nonspecific in regards to osteomyelitis. There is no abscess. Jaycee Bowser MD Thoracic Spine MRI 02/06/17 0000 Signed Impressions: Service Date/Time: Monday, February 06, 2017 18:36 - CONCLUSION: Negative thoracic spine MRI without contrast. Timoteo Stapleton MD Lumbar Spine MRI 02/06/17 0000 Signed Impressions: Service Date/Time: Monday, February 06, 2017 18:36 - CONCLUSION: 1. Lumbar spine degenerative changes as above, most conspicuous at L1/L2. 2. Large anterior annular fissure at the L1/L2 disc and reactive appearing marrow edema of the adjacent anterior/inferior corner of the L1 vertebral body. 3. No abscess. No significant foraminal or spinal stenosis. No evidence of osteomyelitis. Timoteo Stapleton MD Cervical Spine MRI 02/06/17 0000 Signed Impressions: Service Date/Time: Monday, February 06, 2017 18:36 - CONCLUSION: Minimal degenerative changes. No stenosis or abscess of the cervical spine. Timoteo Stapleton MD PE at Discharge GENERAL: Well-nourished, well-developed male patient sitting up in bed awake. Alert and oriented x 3. SKIN: Warm and dry. No rash. Multiple tattoos noted. Right upper arm PICC line noted. HEAD: Normocephalic. EYES: No scleral icterus. No injection or drainage. NECK: Supple, trachea midline. No JVD. CARDIOVASCULAR: Regular rate and rhythm/ No murmurs, gallops, or rubs appreciated. RESPIRATORY: Breath sounds equal bilaterally. No accessory muscle use. GASTROINTESTINAL: Abdomen soft, non-tender, nondistended. MUSCULOSKELETAL: No cyanosis, or edema. BACK: Nontender without obvious deformity. No CVA tenderness. Pt update on day of discharge Patient seen and examined today, lying in bed eating breakfast and ice cream. Family member at the bedside. Patient states he is doing well. PICC in place. States he is ready to go home. Asking regarding antibiotic use and fees. Discuss with patient he will need to be at the infusion center for the IV antibiotic and end date as per ID recommendation. Denies fevers, chills, n/v/ d. Denies SOB/ dyspnea, chest pain. Hospital Course Patient was admitted with severe sepsis secondary to endocarditis vs septic arthritis (left knee, shoulder), Blood cultures with bacteremia positive for MRSA. Patient has been treated with IV antibiotics as per ID recommendation. He was started on Vancomycin, then Cubicin. PICC line RUE inserted and plan is for him to be DC at the infusion center for Televancin IV daily to be completed March 28, 2017. During his course of hospitalization patient developed acute renal failure and hypomagnesemia which has now resolved. He was counselled on his IV drug use and he will follow up with Methadone clinic when he gets discharges. Patient motivated to stay drug free and keeping PICC line clean. He has history of Hep C and has been recommended to also follow up with assistant professor sculpture or correspondence transcriber for further management. He has clinically improved and all acute medical episodes have resolved. Pt Condition on Discharge: Good Discharge Disposition: Discharge Home Discharge Time: > 30 minutes Discharge Instructions DIET: Follow Instructions for: As Tolerated, No Restrictions Speech Therapy-Diet Recommends: Regular Activities you can perform: Weight Bearing as [place] Activities to Avoid: Driving for 24 hrs Follow up Referrals: Orthopedics - 2 Weeks @ [facility] with Arcadio Monge Jr., MD New Orders: COMP MET PROF (CMP) - 2 Weeks New Medications: Oxycodone-Acetaminophen (Percocet) 5-325 mg Tab 1 TAB PO Q4H PRN for PAIN, #30 TAB 0 Refills Famotidine (Famotidine) 20 Mg Tab 10 MG PO BID for Dyspepsia for 30 Days, #60 TAB 0 Refills Folic Acid (Folic Acid) 1 Mg Tablet 1 MG PO DAILY for supplement for 30 Days, #30 CAP 0 Refills Rifampin (Rifampin) 150 Mg Cap 300 MG PO Q12HR for MRSA bacteremia for 30 Days, #60 CAP 0 Refills Thiamine HCl (Gnp Vitamin B-1) 100 Mg Tab 100 MG PO DAILY for supplement for 30 Days, #30 TAB 0 Refills Discontinued Medications: Aspirin (Aspirin) 325 Mg Tab 325 MG PO DAILY, #30 TAB 0 Refills Ibuprofen (Motrin Ib) 200 Mg Tablet Vince Eddy Feb 23, 2017 08:26
[2017-02-23] MEDS ORDERED: FOLI1TAB6 PO (08:43)
[2017-02-23] MEDS ORDERED: GNP100TA3 PO (08:43)
[2017-02-23] MEDS ORDERED: FAMO20TA2 PO (08:43)
[2017-02-23] MEDS ORDERED: RIFA150C2 PO (08:49)
[2017-02-23] MEDS ORDERED: [UNRECOGNIZED DRUG - OTHER] IV SCH ×2 (10:00)
[2017-02-23] MEDS ORDERED: SODIUM CHLORIDE IV SCH ×2 (10:00)
[2017-02-23] MEDS ORDERED: VIBA750I IV (10:13)
== END 2017-02-23 09:36 | disposition home or self-care (01) | DRG 853 ==
LOC: NEPC 13:18 → NEDA 18:46 → N07B 02-07 13:20
PROVIDERS: ADMIT Family Medicine; ATTEND Family Medicine
PROC: 06HY33Z Insertion of Infusion Device into Lower Vein, Percutaneous Approach (ICD-10-PCS; 2017-02-06)
PROC: 0S9D0ZZ Drainage of Left Knee Joint, Open Approach (ICD-10-PCS; principal; 2017-02-08 14:01)
PROC: 30233N1 Transfusion of Nonautologous Red Blood Cells into Peripheral Vein, Percutaneous Approach (ICD-10-PCS; 2017-02-10)
PROC: 05HM33Z Insertion of Infusion Device into Right Internal Jugular Vein, Percutaneous Approach (ICD-10-PCS; 2017-02-17)
PROC: B513YZA Fluoroscopy of Right Jugular Veins using Other Contrast, Guidance (ICD-10-PCS; 2017-02-17)
PROC: B543ZZA Ultrasonography of Right Jugular Veins, Guidance (ICD-10-PCS; 2017-02-17)
PROC: 02HV33Z Insertion of Infusion Device into Superior Vena Cava, Percutaneous Approach (ICD-10-PCS; 2017-02-21)
DX: A41.02 Sepsis due to Methicillin resistant Staphylococcus aureus (principal); G93.40 Encephalopathy, unspecified; R65.21 Severe sepsis with septic shock; E43 Unspecified severe protein-calorie malnutrition; N17.9 Acute kidney failure, unspecified; R64 Cachexia; M00.062 Staphylococcal arthritis, left knee; E86.0 Dehydration; F11.20 Opioid dependence, uncomplicated; Z68.1 Body mass index [BMI] 19.9 or less, adult; M15.9 Polyosteoarthritis, unspecified; B18.2 Chronic viral hepatitis C; G47.00 Insomnia, unspecified; M75.42 Impingement syndrome of left shoulder; R12 Heartburn; D64.9 Anemia, unspecified; E87.6 Hypokalemia; E83.51 Hypocalcemia; E83.42 Hypomagnesemia; G25.81 Restless legs syndrome; F41.9 Anxiety disorder, unspecified; F12.90 Cannabis use, unspecified, uncomplicated; Z59.0 Homelessness; Z72.0 Tobacco use
CPT/HCPCS: 20610; 36430; 36556; 36569; 71010; 72141; 72146; 72148; 73020; 73221; 74177; 76937; 77001; 80048; 80053; 80074; 80076; 80202; 81001; 82550; 83605; 83690; 83735; 84100; 84134; 84155; 84484; 85007; 85014; 85018; 85025; 85027; 85610; 85652; 85730; 86140; 86403; 86703; 86850; 86900; 86901; 86920; 87015; 87040; 87070; 87071; 87077; 87086; 87102; 87116; 87186; 87205; 87206; 89051; 89060; 93005; 93306; 94150; 96365; 96366; 96368; J0690; J0878; J1580; J1644; J1650; J1885; J2405; J2543; J3010; J3370; J3475; J3480; J7030; J7050; J7120; P9016; Q0169; Q9963; Q9967